=== PATIENT | female | born 1965 | race Caucasian/White ===

== ENCOUNTER 2024-09-22 01:07 | Day surgery (SDC) | payer OTHER, SELFPAY ==
[2024-09-02 12:30] VITALS: BMI 41.6
[2024-09-22 12:59] VITALS: BP 150/89; PULSE 88; RESP 16; TEMP 35.9; O2SAT 100
[2024-09-22] MEDS: LACTATED RINGERS 1,000 ML 150 ML IV CONT (13:40)
--- NOTE | 2024-09-22 13:42 | PM.HPGS ---
History of Present Illness History of Present Illness Consent: Risks, benefits, and alternatives have been discussed and questions answered. Patient agrees to proceed with procedure. Chief complaint: colon screening Narrative: Lisa Moreno is a 59 year old female here for screening colonoscopy, last one 10 years ago. Review of Systems Review of Systems: All systems reviewed & are unremarkable except as noted in HPI and below PMFSH Past Medical History Medical History (Updated 09/22/24 @ 13:42 by Jeramie Álvarez MD) Colon cancer screening Social History Social History Alcohol intake: current Alcohol use details: holidays Living arrangements: with family Spiritual care concerns: No Meds Home Medications and Allergies Home Medications ?Medication ?Instructions ?Recorded ?Confirmed ?Type L.acidophilus-B.animalis-B.longum 1 cap PO DAILY 09/02/24 09/22/24 History 15 billion cell capsule (Florajen Digestion) Vitamin D2 1.25 mg BYMOUTH WEEKLY 09/02/24 09/22/24 History amlodipine 5 mg tablet 5 mg PO DAILY 09/02/24 09/22/24 History irbesartan 300 mg tablet 300 mg PO DAILY 09/02/24 09/22/24 History mecobalamin (vitamin B12) See Rx Instructions PO DAILY 09/02/24 09/22/24 History Allergies Allergy/AdvReac Type Severity Reaction Status Date / Time adhesive Allergy Severe Blister Verified 09/22/24 12:56 adhesive tape Allergy Severe Blister Verified 09/22/24 12:56 benzoin Allergy Severe Blister Verified 09/22/24 12:56 azithromycin Allergy Mild Hives Verified 09/22/24 12:56 celecoxib Allergy Mild Hives Verified 09/22/24 12:56 erythromycin base Allergy Mild Hives Verified 09/22/24 12:56 silver Allergy Mild Rash Verified 09/22/24 12:56 oral prednisone Allergy Severe Hypertensio Uncoded 09/22/24 12:56 n Vital Signs Vital Signs - 24 hr 09/22/24 12:59 Temperature 96.7 F L Pulse Rate 88 Respiratory Rate 16 Blood Pressure 150/89 H Pulse Oximetry 100 Oxygen Delivery Room Air Exam Const: General: comfortable and no acute distress HENMT: Face/Nose/Sinus: Normal nares present Eyes: General: appearance normal, both eyes and all related structures Neck: Neck: no JVD Resp: Auscultation: clear to auscultation bilaterally Cardio: Rate: regular rate Rhythm: regular rhythm GI: Inspection: non-distended GI Palp: Yes Soft to palpation Skin: General skin exam: normal color Neuro: General: gait normal Speech: normal speech Extrem: General: normal to inspection Psych: Mental Status: mental status grossly normal Assessment and Plan Assessment and plan (1) Colon cancer screening: Code(s): Z12.11 - Encounter for screening for malignant neoplasm of colon Status: Acute Assessment and Plan: colonoscopy
[2024-09-22 14:10] VITALS: BP 145/101; PULSE 97; RESP 22; O2SAT 100
[2024-09-22 14:20] VITALS: BP 133/67; PULSE 81; RESP 17; O2SAT 97
[2024-09-22 14:30] VITALS: BP 131/70; PULSE 78; RESP 19; O2SAT 97
== END 2024-09-22 14:40 | disposition home or self-care (01) ==
PROVIDERS: PCP Internal Medicine; Visit Provider Internal Medicine Gastroenterology
PROC: 0DJD8ZZ Inspection of Lower Intestinal Tract, Via Natural or Artificial Opening Endoscopic (ICD-10-PCS; CPT 45378; principal; 2024-09-22 14:00)
DX: Z12.11 Encounter for screening for malignant neoplasm of colon (principal); K57.30 Diverticulosis of large intestine without perforation or abscess without bleeding
CPT/HCPCS: 45378; J2003; J2704; J7120

== ENCOUNTER 2024-12-11 08:14 | Outpatient (CLI) | payer OTHER, SELFPAY ==
--- NOTE | ~2024-12-11 | XR_ITS ---
EXAMINATION: XR UGIAC w small bowel DATE: 12/11/2024 09:45 INDICATION: Early satiety and bloating TECHNIQUE: The patient drank thick barium, gas-producing crystals, and thin barium. Conventional supi ne abdomen radiographs and fluoroscopic spot radiographs of the esophagus, stomach, and proximal smal l bowel were obtained. Additional overhead radiographs were obtained during the transit through the s mall bowel. Spot fluoroscopic images of the small bowel were obtained upon contrast reaching the cec um. A total of 969 fluoroscopic images and 6 overhead radiographs were obtained. Fluoroscopy exposure time was 3.8 minutes. Total DAP was 305.597 Gycm^2. COMPARISON: None. FINDINGS: The esophagus is normal without mass or stricture. Esophageal motility is normal. Postoperative smith e of prior adjustable lap banding procedure with reservoir projecting over the left pelvis and with n ormal phi angle of 40 degrees. The band is positioned below the diaphragm, very close to the gastroes ophageal junction. There is no hiatal hernia. The gastroesophageal junction at the level of the lap b and measures up to 8 x 9 mm on lateral and AP imaging respectively. There was no gastroesophageal ref lux with provocative maneuvers. The stomach and proximal small bowel are normal. Cholecystectomy clips in right upper quadrant. Transit time from the stomach to proximal colon was ap proximately 45 minutes. There is normal caliber and mucosal fold pattern throughout the small bowel. Terminal ileum is normal. No tethering or abnormal mass effect observed upon the small bowel with r eal-time fluoroscopy. IMPRESSION: 1. Adjustable lap band near the gastroesophageal junction with normal phi angle of 40 degrees. 2. Otherwise normal upper GI and small bowel follow-through study. Reviewed, dictated and finalized at location A.
--- OUTSIDE RECORDS SUMMARY | 2024-12-11 08:22 | XMS_ITS | Encounter Summary ---
Author Organization [facility] Address [address] [place] [address] Care Team Providers Care Flagger Name Role Phone Lucy Luna MD Primary Care Provider [phone] Encounter Details Date Type Department Care Team (Latest Contact Info) Description 11/07/2024 [employer] Message Enc [facility] Medical Group Multispecialty Care [facility] [address] [address] [address] [place] [address] Lucy Luna MD [address] [place] [address] [address] [place] [address] Root canal w/abcess Social History Tobacco Use Types Packs/Day Years Used Date Smoking Tobacco: Never Passive Smoke Exposure: Never Smokeless Tobacco: Never Comments:Counseled by Dr. Raquel león. Alcohol Use Standard Drinks/Week Comments Not Currently 0 (1 standard drink = 0.6 oz pur e alcohol) PHQ-2 Answer Date Recorded Patient Health Questionnaire-2 Score 0 11/07/2024 Comments No Sex and Gender Information Value Date Recorded Sex Assigned at Female 09/23/2024 8:49 AM WEIGHT ANALYST Legal Sex Female 11:30 PM WEIGHT ANALYST Gender Identity Female 11/14/2024 10:46 AM WEIGHT ANALYST Sexual Orientation Straight 11/14/2024 10 :46 AM WEIGHT ANALYST documented as of this encounter Plan of Treatment Upcoming Encounters Date Type Department Care Team (Late st Contact Info) Description 12/15/2024 9:30 AM CDT Office Visit [facility] Physical [facility] [address] [address] [place] [address] Piedad Mcfarland, GRACIA [address] [facility] [address] [place] [address] Analilia Fulton, PT 1 [facility] [place] [address] 12/19/2024 2:00 PM CDT Office Visit [facility] General Surgery [address], [address] [place] [id number] Bernard Solano MD [address] [place] [address] 12/29/2024 11:40 AM CDT [facility] - [facility] [address] [facility], [address] [place] [address] Osiel Telles MD 3 [facility] [address] [place] [address] 01/13/2025 12:40 PM CDT [facility] - [place] [address] [place] [address] [address] [place] [address] [place] [address] [place] [address] [address] [place] [address] documented as of this encounter Visit Diagnoses Not on filedocumented in this encounter Additional Health Concerns Infection Onset Date Last Indicated Resolved Time Respiratory Rule-Out 11/14/2024 11/14/2024 025 4:36 PM WEIGHT ANALYST Influenza - Seasonal 11/14/2024 11/14/2024 025 12:32 AM CDT Assessment Noted Time PHQ-9 Depression Total Score: 0 02/28/20 25 10:46 AM WEIGHT ANALYST documented as of this encounter Care Teams Flagger Relationship Specialty Start Date End Date Lucy Luna MD [facility] [address] [address] PCP - General 05/08/24 documented as of this encounter
--- OUTSIDE RECORDS SUMMARY | 2024-12-11 08:22 | XMS_ITS | Encounter Summary ---
Author Organization [facility] Address [address] [place] [address] Care Team Providers Care Gas Plumbing Inspector Name Role Phone Lucy Luna MD Primary Care Provider [phone] Encounter Details Date Type Department Care Team (Latest Contact Info) Description 10/31/2024 [employer] Message Enc [facility] Medical Group Multispecialty Care [facility] [address] [address] [address] [place] [address] Lucy Luna MD [address] [place] [address] [address] [place] [address] Compound tirzepitide Social History Tobacco Use Types Packs/Day Years Used Date Smoking Tobacco: Never Passive Smoke Exposure: Never Smokeless Tobacco: Never Comments:Counseled by Dr. Raquel león. Alcohol Use Standard Drinks/Week Comments Not Currently 0 (1 standard drink = 0.6 oz pur e alcohol) PHQ-2 Answer Date Recorded Patient Health Questionnaire-2 Score 0 05/09/2024 Comments No Sex and Gender Information Value Date Recorded Sex Assigned at Female 09/23/2024 8:49 AM COLD MOLDING PRESS OPERATOR Legal Sex Female 11:30 PM COLD MOLDING PRESS OPERATOR Gender Identity Female 11/14/2024 10:46 AM COLD MOLDING PRESS OPERATOR Sexual Orientation Straight 11/14/2024 10 :46 AM COLD MOLDING PRESS OPERATOR documented as of this encounter Plan of Treatment Upcoming Encounters Date Type Department Care Team (Late st Contact Info) Description 12/15/2024 9:30 AM CDT Office Visit [facility] Therapy [address] [facility] [address] [place] [address] Piedad Mcfarland, GRACIA [address] [facility] [address] [place] [address] Analilia Fulton, PT 1 [place] [address] 12/19/2024 2:00 PM CDT Office Visit [facility] General Surgery - [address], [address] [place] [address] Bernard Solano MD [address] [place] [address] 12/29/2024 11:40 AM CDT [facility] [address] [facility], [address] [place] [address] Osiel Telles MD 3 [facility] [address] [place] [address] 01/13/2025 12:40 PM CDT [facility] [address] [place] [address] [address] [place] [address] [place] [address] [place] [address] [address] [place] [address] documented as of this encounter Visit Diagnoses Not on filedocumented in this encounter Additional Health Concerns Infection Onset Date Last Indicated Resolved Time Respiratory Rule-Out 11/14/2024 11/14/2024 025 4:36 PM COLD MOLDING PRESS OPERATOR Influenza - Seasonal 11/14/2024 11/14/2024 025 12:32 AM CDT Assessment Noted Time PHQ-9 Depression Total Score: 5 08/30/20 24 12:10 PM CDT documented as of this encounter Care Teams Gas Plumbing Inspector Relationship Specialty Start Date End Date Lucy Luna MD [address] [address] PCP - General 05/08/24 documented as of this encounter
--- OUTSIDE RECORDS SUMMARY | 2024-12-11 08:22 | XMS_ITS | Clinical Summary ---
Author Organization [facility] Address [address] [place] [address] Care Team Providers Care Anchorer Name Role Phone Lucy Luna MD Primary Care Provider [phone] Allergies Active Allergy Reactions Criticality Noted Date Comments Adhesive Itching Low 08/04/2017 Azithromycin Hives Medium 09/11/2019 Benzoin Rash Medium 05/21/2018 Benzoin Compound Rash Medium 05/21/2018 Celecoxib Hives Medium 11/19/2008 HIVES Ciprofloxacin Dizziness,Other (See comments) Low 05/21/2018 Diltiazem Headache Low 05/27/2024 Erythromycin Hives Medium 12/27/2020 Levofloxacin Other (See comments),Joint pain Low 05/08/2019 Joint pain Orphenadrine Hives Medium 09/11/2019 Prednisone Other (See comments) Low 05/21/2018 Hypertension Blood pressure elevation Silver Rash Medium 04/15/2012 Sulfa Hives Medium 12/27/2020 Sulfamethoxazole-Trimeth oprim Hives Medium 05/21/2018 Vancomycin Hcl Stomach upset,Other (See comments) Low 05/21/2018 Rectal bleeding Medications irbesartan (AVAPRO) 300 mg tablet 11/17/19 25 Active amLODIPine (NORVASC) 10 mg tablet 11/17/19 25 Active tirzepatide, weight loss, (Zepbound) 2.5 mg/0.5 mL pen injector Indications: Weight Loss Inject 2.5mg subcutaneous once weekly x 4 weeks then increase to 5mg weekly 11/05/19 25 Active omeprazole (PriLOSEC) 40 mg capsule Take 1 capsule (40 mg total) by mouth daily 11/15/19 25 Active L. acidophilus/Bi fid. animalis 33 billion cell capsule Take 1 capsule by mouth daily Active HYDROcodone-ac etaminophen (NORCO) 5-325 mg per tablet Take 1 tablet by mouth 11/07/19 25 Active escitalopram (LEXAPRO) 10 mg tablet Take 1 tablet (10 mg total) by mouth 04/01/20 24 025 Active ergocalciferol (VITAMIN D) 50,000 unit capsule Take 1 capsule (50,000 Units total) by mouth every 7 days Active dicyclomine (BENTYL) 20 mg tablet Take 1 tablet (20 mg total) by mouth every 6 (six) hours 08/20/20 Active diazePAM (VALIUM) 2 mg tablet Take 0.5 tablets (1 mg total) by mouth every 6 (six) hours as needed for anxiety 10 tablet 12/01/19 24 025 Discontinued amLODIPine (NORVASC) 5 mg tablet Take 1 tablet (5 mg total) by mouth 2 (two) times a day 06/24/20 025 Discontinued carvediloL (COREG) 6.25 mg tablet Take 1 tablet (6.25 mg total) by mouth 12/12/19 025 Discontinued irbesartan (AVAPRO) 75 mg tablet Take 1 tablet (75 mg total) by mouth daily 025 Discontinued ciprofloxacin- dexAMETHasone (CIPRODEX) otic suspension Administer 4 drops into the left ear 2 (two) times a day 7.5 mL 03/13/20 025 Discontinued benzonatate (TESSALON) 200 mg capsuleIndicat ions:Acute maxillary sinusitis, recurrence not specified Take 1 capsule (200 mg total) by mouth 3 (three) times a day as needed for cough 42 capsule 06/30/20 025 Discontinued amoxicillin-cl avulanate (AUGMENTIN) 875-125 mg per tabletIndicati ons:Bronchitis Take 1 tablet by mouth 2 (two) times a day for 7 days 14 tablet 11/26/19 25 025 Active Problems No known active problems Encounters Date Type Department Care Team Description 11/28/2024 7:56 AM CDT - 11/28/2024 11:59 PM CDT Hospital Encounter [facility] [address] [place] [address] Other abnormal and inconclusive findings on diagnostic imaging of breast Discharge Disposition: Discharge to home or self care 11/28/2024 7:55 AM CDT - 11/28/2024 11:59 PM CDT Hospital Encounter [facility] [address] [place] [address] Other abnormal and inconclusive findings on diagnostic imaging of breast Discharge Disposition: Discharge to home or self care 11/26/2024 Results Follow-Up [facility] [place] [address] [place] [address] Dahlia Dumas NP 11/25/2024 11:52 AM CDT - 11/25/2024 11:59 PM CDT Hospital Encounter [facility] [address] [place] [address] Sore throat Discharge Disposition: Discharge to home or self care 11/25/2024 11:30 AM CDT Office Visit [facility] Medical [facility] [place] [address] [place] [address] Brooke Banerjee NP Sore throat (Primary Dx); Bronchitis 11/20/2024 12:22 PM CDT - 11/20/2024 11:59 PM CDT Hospital Encounter [address] [address] Encounter for screening for osteoporosis Discharge Disposition: Discharge to home or self care 11/20/2024 12:22 PM CDT - 11/20/2024 11:59 PM CDT Hospital Encounter [address] [address] Encounter for screening mammogram for malignant neoplasm of breast Discharge Disposition: Discharge to home or self care 11/12/2024 Telephone [facility] [address] [facility] [address] [place] [phone] Dahlia Thomas RN from Last 3 Months Surgical History Surgery Date Site/Laterality Comments HYSTERECTOMY 09/10/2005 - 09/09/2006 OOPHORECTOMY 09/10/2009 - 09/09/2010 Family History Medical History Relation Name Comments Ovarian cancer Father's Sister Breast cancer Mother Ovarian cancer Paternal Grandmother Thyroid cancer Neg Hx Relation Name Status Comments Father's Sister Mother Paternal Grandmother Social History Tobacco Use Types Packs/Day Years Used Date Smoking Tobacco: Never Smokeless Tobacco: Never Tobacco Cessation:Counseling Given: Not Answered Alcohol Use Standard Drinks/Week Comments Yes 0 (1 standard drink = 0.6 oz pur e alcohol) occasionally Personal Safety Answer Date Recorded Have you ever been in or are you currently in a harmful physical or emotional relationship or is someone making you feel afraid or unsafe? Denies 03/13/2024 Comments No Sex and Gender Information Value Date Recorded Sex Assigned at Not on file Legal Sex Female 11:46 AM CDT Gender Identity Female 11/26/2024 4:48 PM CDT Sexual Orientation Asexual 11/26/2024 4: 48 PM CDT Obstetrics History Para Term AB IAB SAB Ectopic Multiple Livin g Live Births 7 4 4 Date Outcome GA Total Labor Labor/2nd/3rd Weight Sex Type Anes PTL Marisol A1 A5 Name Clin Term Term Term Term Last Filed Vital Signs Vital Sign Reading Time Taken Comments Blood Pressure 132/84 11/25/2024 11:21 AM CDT Pulse 86 11/25/2024 11:21 AM CDT Temperature 36.6 C (97.8 F) 11/25/2024 11:21 AM CDT Respiratory Rate 18 11/25/2024 11:21 AM CDT Oxygen Saturation 98% 11/25/2024 11:21 AM CDT Inhaled Oxygen Concentration - - Weight 122.5 kg (270 lb) 11/25/2024 11:21 AM CDT Height 165.1 cm (5' 5 ) 11/25/2024 11:21 AM CDT Body Mass Index 44.93 11/25/2024 11:21 AM CDT Plan of Treatment Health Maintenance Due Date Last Done Comments Colon Cancer Screening-Colonoscopy 1966 Depression Screening 1966 Hepatitis C Screening 1966 Hepatitis B Screening 01/25/1984 Regular Well Visit/Exam 18-64 01/25/1984 Zoster Vaccine (1 of 2) 01/25/2016 Covid-19 Vaccine ( season) 2024 07/06/2021, 11/08/2020, 10/18/2020 Influenza Vaccine (Season Ended) 2025 06/28/2022, 06/21/2021, 06/06/2020, Additional history exists Breast Cancer Screening-Mammogram 11/20/2025 11/20/2024, 09/17/2023, 09/17/2023, Additional history exists DTaP/Tdap/Td Vaccine (3 - Td or Tdap) 12/17/2030 12/17/2020, 11/03/2010 Pneumococcal vaccine <65 Aged Out No longer eligible based on patient's age to complete this topic Procedures Procedure Name Priority Date/Time Associated Diagnosis Comments US BREAST LEFT LIMITED Schedule Routine, Read Routine (OP Routine) 11/28/2024 8:42 AM CDT Other abnormal and inconclusive findings on diagnostic imaging of breast DIAGNOSTIC MAMMOGRAM 2D LEFT Schedule Routine, Read Routine (OP Routine) 11/28/2024 8:10 AM CDT Other abnormal and inconclusive findings on diagnostic imaging of breast THROAT CULTURE Routine 11/25/2024 11:52 AM CDT Sore throat POCT RAPID STREP Routine 11/25/2024 11:4 1 AM CDT Sore throat DEXA AXIAL SKELETON BONE DENSITY 1 OR MORE SITES Schedule Routine, Read Routine (OP Routine) 11/20/2024 1:17 PM CDT Encounter for screening for osteoporosis SCREENING MAMMOGRAM BILATERAL W BUBBA Schedule Routine, Read Routine (OP Routine) 11/20/2024 12:36 PM CDT Encounter for screening mammogram for malignant neoplasm of breast from Last 3 Months Results * US Breast Left Limited (11/28/2024 8:42 AM CDT) Anatomical Region Laterality Modality Breast Left Ultrasound 11/28/2024 9:11 AM CDT Impressions 11/28/2024 9:11 AM CDT Grouped microcalcifications in the left breast are probably benign. OVERALL FINAL ASSESSMENT: BI-RADS Category 3: Probably Benign. RECOMMENDATION: The patient should return in 6 months time for follow-up diagnostic imaging to document stability. Electronically signed by: Clementina Hsieh M.D. Narrative 11/28/2024 9:11 AM CDT EXAMINATION: LEFT UNILATERAL DIGITAL DIAGNOSTIC MAMMOGRAM AND DIGITAL BREAST TOMOSYNTHESIS; LEFT BREAST SONOGRAM HISTORY: Abnormal screening study COMPARISON: 11/20/2024, 09/17/2023, 07/28/2022, 05/02/2021 TECHNIQUE: Full field digital mammographic views of left breast were performed, including computer aided detection (CAD) and digital breast tomosynthesis (DBT). Directed ultrasound evaluation of left breast was performed. BREAST PARENCHYMAL COMPOSITION: The breasts are almost entirely fatty. MAMMOGRAM FINDINGS: Magnification CC, magnification 90 degree and full field 90 degrees images of the left breast were performed. The microcalcifications identified within the medial posterior tissues of the left breast, 15 cm from the nipple demonstrate overall coarse morphology. Some calcifications may represent developing vascular calcifications. Magnification 90 degree view raises the question of an underlying lesion such as a fibroadenoma. Ultrasound evaluation was performed. SONOGRAM FINDINGS: Targeted left breast ultrasound was performed in the region of interest. No definite sonographic correlate for the mammographic findings is appreciated. us Lucy Luna MD IMG MAMMO PROCEDURES Final Resul t * Diagnostic Mammogram 2D Left (11/28/2024 8:10 AM CDT) Anatomical Region Laterality Modality Breast Left Mammography 11/28/2024 9:11 AM CDT Impressions 11/28/2024 9:11 AM CDT Grouped microcalcifications in the left breast are probably benign. OVERALL FINAL ASSESSMENT: BI-RADS Category 3: Probably Benign. RECOMMENDATION: The patient should return in 6 months time for follow-up diagnostic imaging to document stability. Electronically signed by: Clementina Hsieh M.D. Narrative 11/28/2024 9:11 AM CDT EXAMINATION: LEFT UNILATERAL DIGITAL DIAGNOSTIC MAMMOGRAM AND DIGITAL BREAST TOMOSYNTHESIS; LEFT BREAST SONOGRAM HISTORY: Abnormal screening study COMPARISON: 11/20/2024, 09/17/2023, 07/28/2022, 05/02/2021 TECHNIQUE: Full field digital mammographic views of left breast were performed, including computer aided detection (CAD) and digital breast tomosynthesis (DBT). Directed ultrasound evaluation of left breast was performed. BREAST PARENCHYMAL COMPOSITION: The breasts are almost entirely fatty. MAMMOGRAM FINDINGS: Magnification CC, magnification 90 degree and full field 90 degrees images of the left breast were performed. The microcalcifications identified within the medial posterior tissues of the left breast, 15 cm from the nipple demonstrate overall coarse morphology. Some calcifications may represent developing vascular calcifications. Magnification 90 degree view raises the question of an underlying lesion such as a fibroadenoma. Ultrasound evaluation was performed. SONOGRAM FINDINGS: Targeted left breast ultrasound was performed in the region of interest. No definite sonographic correlate for the mammographic findings is appreciated. us Lucy Luna MD IMG MAMMO PROCEDURES Final Resul t * Throat culture Throat (11/25/2024 11:52 AM CDT) Report Final Report: No growth of pathogens. Comment:Testing performed by : [facility], [address] [place] [address] Throat 11/25/2024 11:5 2 AM CDT 11/25/2024 9:50 PM CDT Narrative BRITTANIE ROA - 11/26/2024 6:00 PM CDT Testing performed by [facility] Microbiology Laboratory ([phone]). us Brooke Banerjee NP LAB MICROBIOLOGY - GENERAL ORDER JELANI Final Result [facility] [address] Department [place] [address] * POCT rapid strep A (11/25/2024 11:41 AM CDT) Rapid Strep A, POC Negative Negative Swab 11/25/2024 11:4 1 AM CDT us Brooke Banerjee DIESEL ENGINE TESTER POINT OF CARE TEST ORDERABLES Fi nal Result * Dexa Axial Skeleton Bone Density 1 or 2 Site (11/20/2024 1:17 PM CDT) Anatomical Region Laterality Modality Body N/A Other 11/22/2024 7:01 AM CDT Narrative 11/22/2024 7:01 AM CDT EXAM DESCRIPTION: DEXA AXIAL SKELETON BONE DENSITY 1 OR MORE SITES REASON FOR STUDY: 59 y/o year old F with given history of: Postmenopausal status. History of taking vitamin-D and calcium Button Sewer Hand/Model: [employer] SL ([id number]/N [id number]) Facility LSC value of 0.022 for the AP spine, 0.027 for the femur, and 0.023 for the forearm. CLINICAL INFORMATION: Current height: 65 inches Maximum height: 65 inches Weight: 250 pounds Risk factors: None COMPARISON: None available FINDINGS: AP LUMBAR SPINE L1-L4: Total BMD is 1.039 g/cm2 T-score is -0.1 LEFT HIP: Total BMD is 0.809 g/cm2 T-score is -1.1 Femoral neck BMD is 0.587 g/cm2 T-score is -2.4 FRAX: 10 year risk for a major osteoporotic fracture is 8.9 %, 10 year risk for a hip fracture is 1.3 % IMPRESSION: Low bone mass REFERENCE: Bone mineral density: T-Score: Normal (T-score above or = -1.0) Low bone mass (T-score between -1.0 and -2.5) replaces the previously used term osteopenia Osteoporosis (T-score = or below -2.5) Z-Score: Within the expected range for age (Z-score above -2.0) Below the expected range for age (Z-score is -2.0 or below) Please see below follow up recommendations. Medical evaluation for secondary causes of low bone mineral density may be appropriate. FRAX is a World Health Organization validated fracture risk assessment tool that calculates a person's 10 year probability of a major osteoporosis related fracture and hip fracture. According to the National Osteoporosis Foundation guidelines, postmenopausal women and men age 50 or older with low bone mass and a 10 year probability of a major osteoporosis related fracture = or greater than 20% or a 10 year probability of a hip fracture = or greater than 3% should be considered for pharmacological treatment for the prevention of osteoporosis. For further information, including treatment recommendations, please refer to the 2019 ISCD Official Positions (http://www.iscd.org) and the NOF's Clinician's Guide to Prevention and Treatment of Osteoporosis (http://www.nof.org/professionals/clinical-guidelines) THIS IS AN ELECTRONICALLY VERIFIED FINAL REPORT 11/22/2024 7:01 AM - Electronically signed by Juana Garcia M.D. TW: TW Report ID: [id number] Reading Location: [id number] Procedure Note Juana Garcia MD - 11/22/2024 EXAM DESCRIPTION: DEXA AXIAL SKELETON BONE DENSITY 1 OR MORE SITES REASON FOR STUDY: 59 y/o year old F with given history of:Postmenopausal status. 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 CLINICAL INFORMATION: Current height: 65 inches Maximum height: 65 inches Weight: 250 pounds Risk factors: None COMPARISON: None available FINDINGS: AP LUMBAR SPINE L1-L4: Total BMD is 1.039 g/cm2 T-score is -0.1 LEFT HIP: Total BMD is 0.809 g/cm2 T-score is -1.1 Femoral neck BMD is 0.587 g/cm2 T-score is -2.4 FRAX: 10 year risk for a major osteoporotic fracture is 8.9 %, 10 year risk fora hip fracture is 1.3 % IMPRESSION: Low bone mass REFERENCE: Bone mineral density: T-Score: Normal (T-score above or = -1.0) Low bone mass (T-score between -1.0 and -2.5) replaces thepreviously used term osteopenia Osteoporosis (T-score = or below -2.5) Z-Score: Within the expected range for age (Z-score above -2.0) Below the expected range for age (Z-score is -2.0 or below) Please see below follow up recommendations. Medical evaluation forsecondary causes of low bone mineral density may be appropriate. FRAX is a World Health Organization validated fracture risk assessmenttool that calculates a person's 10 year probability of a major osteoporosisrelated fracture and hip fracture. According to the National OsteoporosisFoundation guidelines, postmenopausal women and men age 50 or older with low bonemass and a 10 year probability of a major osteoporosis related fracture = or greater than 20% or a 10 year probability of a hip fracture = or greaterthan 3% should be considered for pharmacological treatment for the preventionof osteoporosis. For further information, including treatment recommendations, please referto the 2019 ISCD Official Positions (http://www.iscd.org) and the NOF's Clinician's Guide to Prevention and Treatment of Osteoporosis (http://www.nof.org/professionals/clinical-guidelines) THIS IS AN ELECTRONICALLY VERIFIED FINAL REPORT 11/22/2024 7:01 AM - Electronically signed by Juana Garcia M.D. TW: TW Report ID: [id number] Reading Location: [place] [address] Piedad Mcfarland NP IMG DXA PROCEDURES Final R esult * (ABNORMAL) Screening Mammogram Bilateral W Bubba (11/20/2024 12:36 PM CDT) Anatomical Region Laterality Modality Breast Bilateral Mammography Impressions 11/20/2024 1:29 PM CDT BI-RADS ATLAS category (overall): 0 - Incomplete: Needs Additional Imaging Evaluation 1. Indeterminate left breast calcifications as above. Further evaluation with diagnostic left mammography is recommended. 2. No mammographic evidence of malignancy in the right breast. Routine screening mammography of the right breast is recommended in 1 year. The patient has been or will be contacted. Narrative 11/20/2024 1:29 PM CDT Screening Mammogram Bilateral W Bubba: 11/20/24 The study was acquired using full field digital technology and interpreted from soft copy. 2D digital mammographic views, as well as 3D digital tomosynthesis were performed in the CC and MLO projections. This study was resulted using Computer-Aided Detection (CAD). CLINICAL: Encounter for screening mammogram for malignant neoplasm of breast. No relevant medical history has been documented for this patient. History of breast cancer in Mother. COMPARISONS: 09/17/2023 Breast Imaging Screening Outside Reference 07/28/2022 Breast Imaging Screening Outside Reference 05/02/2021 Breast Imaging Screening Outside Reference BREAST TISSUE: The breasts are almost entirely fatty. FINDINGS: There are indeterminate grouped calcifications in the posterior inner left breast, located below the posterior nipple line on the MLO view. There is a stable benign intramammary lymph node in the posterior upper outer right breast. There is no new suspicious finding in th right breast on mammogram. Piedad Mcfarland NP IMG MAMMO PROCEDURES Final Result from Last 3 Months Insurance [facility] [employer] Care Teams Anchorer Relationship Specialty Start Date End Date Lucy Luna MD [address] [place] [address] PCP - General Internal Medicine 09/30/24
--- OUTSIDE RECORDS SUMMARY | 2024-12-11 08:22 | XMS_ITS | Encounter Summary ---
Author Organization [facility] Address [address] [place] [address] Care Team Providers Care Cashier Manager Name Role Phone Lucy Luna MD Primary Care Provider Encounter Details Date Type Department Care Team (Late Contact Info) Description 12/03/2024 MyChart Message Enc [facility] [place] [address] [place] [address] Piedad Mcfarland, THREADING MACHINE OPERATOR [address] [place] [address] DEXA Social History Tobacco Use Types Packs/Day Years Used Date Smoking Tobacco: Never Passive Smoke Exposure: Never Smokeless Tobacco: Never Comments:Counseled by Dr. Raquel lenó. Alcohol Use Standard Drinks/Week Comments Not Currently 0 (1 standard drink = 0.6 oz pur e alcohol) PHQ-2 Answer Date Recorded Patient Health Questionnaire-2 Score 0 11/07/2024 Comments No Sex and Gender Information Value Date Recorded Sex Assigned at Female 09/23/2024 8:49 AM SENIOR ADMINISTRATIVE SUPPORT Legal Sex Female 11:30 PM SENIOR ADMINISTRATIVE SUPPORT Gender Identity Female 11/14/2024 10:46 AM SENIOR ADMINISTRATIVE SUPPORT Sexual Orientation Straight 11/14/2024 10 :46 AM SENIOR ADMINISTRATIVE SUPPORT documented as of this encounter Plan of Treatment Upcoming Encounters Date Type Department Care Team (Late Contact Info) Description 12/15/2024 9:30 AM CDT Office Visit [facility] [address] [place] [address] Piedad Mcfarland, THREADING MACHINE OPERATOR [address] [facility] [address] [place] [address] Analilia Fulton, PT [address] [facility] [place] [address] 12/19/2024 2:00 PM CDT Office Visit [facility] General Surgery - [address], [address] [place] [phone] Bernard Solano MD [address] [address] 12/29/2024 11:40 AM CDT [facility] [place] [facility] [address], [address] [place] [address] Osiel Telles MD [address] [facility] [address] [place] [address] 01/13/2025 12:40 PM CDT [facility] [place] [facility] [place] [address] [place] [address] Lucy Luna MD [address] [address] documented as of this encounter Visit Diagnoses Not on filedocumented in this encounter Additional Health Concerns Assessment Noted Time PHQ-9 Depression Total Score: 0 11/07/19 25 10:46 AM SENIOR ADMINISTRATIVE SUPPORT documented as of this encounter Care Teams Cashier Manager Relationship Specialty Start Date End Date Lucy Luna MD [address] [place] [address] [address] [place] [address] PCP - General 05/08/24 documented as of this encounter
--- OUTSIDE RECORDS SUMMARY | 2024-12-11 08:22 | XMS_ITS | Encounter Summary ---
Author Organization [facility] Address [address] [place] [address] Care Team Providers Care Time Broker Name Role Phone Lucy Luna MD Primary Care Provider [phone] Encounter Details Date Type Department Care Team (Latest Contact Info) Description 05/27/[address] [facility] Multispecialty Care [facility] [address] [address] [address] [place] [address] Lucy Luna MD [address] [place] [address] 157 [place] [address] Hypertension medications Social History Tobacco Use Types Packs/Day Years Used Date Smoking Tobacco: Never Passive Smoke Exposure: Never Smokeless Tobacco: Never Comments:Counseled by Dr. Raquel león. Alcohol Use Standard Drinks/Week Comments Not Currently 0 (1 standard drink = 0.6 oz pur e alcohol) PHQ-2 Answer Date Recorded Patient Health Questionnaire-2 Score 0 05/09/2024 Comments Unknown Sex and Gender Information Value Date Recorded Sex Assigned at Female 09/23/2024 8:49 AM WORKING FOREMAN Legal Sex Female 11:30 PM WORKING FOREMAN Gender Identity Female 11/14/2024 10:46 AM WORKING FOREMAN Sexual Orientation Straight 11/14/2024 10 :46 AM WORKING FOREMAN documented as of this encounter Plan of Treatment Upcoming Encounters Date Type Department Care Team (Late st Contact Info) Description 12/15/2024 9:30 AM CDT Office Visit [facility] Physical Therapy 1188 [facility] 157 [place], [place] [id number] Piedad Mcfarland, GRACIA [address] [facility] [address] [place] [address] Analilia Fulton, PT 1 [facility] [place] [address] 12/19/2024 2:00 PM CDT Office Visit [facility] General Surgery [address], [address] [place] [address] Bernard Solano MD [address] [place] [address] 12/29/2024 11:40 AM CDT [facility] 3 [facility], [address] [place] [address] Osiel Telles MD 3 [facility] 5000 [place] [address] 01/13/2025 12:40 PM CDT [facility] [address] [place] [address] [address] [place] [address] [place] [address] [place] [address] [address] [place] [address] documented as of this encounter Visit Diagnoses Not on filedocumented in this encounter Additional Health Concerns Infection Onset Date Last Indicated Resolved Time Respiratory Rule-Out 11/14/2024 11/14/2024 025 4:36 PM WORKING FOREMAN Influenza - Seasonal 11/14/2024 11/14/2024 025 12:32 AM CDT Assessment Noted Time PHQ-9 Depression Total Score: 5 05/09/20 24 12:10 PM CDT documented as of this encounter Care Teams Time Broker Relationship Specialty Start Date End Date Lucy Luna MD [address] [address] PCP - General 05/08/24 documented as of this encounter
--- OUTSIDE RECORDS SUMMARY | 2024-12-11 08:22 | XMS_ITS | Clinical Summary ---
Author Organization [facility] Address [address] [place] [address] Care Team Providers Care Meter And Regulator Shop Supervisor Name Role Phone Dominique Avila MD Primary Care Provider Allergies Active Allergy Reactions Criticality Noted Date Comments Adhesive Tape Itching 08/04/2017 Sulfamethoxazole-Trimeth oprim Hives 05/21/2018 Benzoin Rash Low 05/21/2018 Celecoxib Hives 11/19/2008 HIVES Ciprofloxacin Other (see Comments) 05/21/2018 Levofloxacin Other (see Comments) 09/11/2019 Joint pain Other-Environmental Allergen (Not Found In Search) Unknown 11/19/2008 Bion?? Solution that goes over steri strips. Prednisone Other (see Comments) 05/21/2018 Blood pressure elevation Silver Rash Low 04/15/2012 Vancomycin Hcl Other (see Comments) 05/21/2018 Rectal bleeding Azithromycin Hives 09/11/2019 Medications AMLODIPINE BESYLATE PO Take by mouth. Act sobeida esomeprazole (NEXIUM) 20 MG CAPSULE DELAYED RELEASE Take 20 mg by mouth daily. Active amLODIPine (NORVASC) 5 MG Tablet 9 Active albuterol (PROAIR HFA) 108 (90 Base) MCG/ACT Aerosol SolutionIndicat ions:Shortness of breath take 2 Puffs by inhalation every 4 hours as needed for Wheezing or Cough. 1 Inhaler 0 Active Additional Information Patient not taking.Reported on 10/30/2020 FLUoxetine (PROzac) 20 MG Capsule 1 Active irbesartan (AVAPRO) 75 MG Tablet 1 Active fluconazole (Diflucan) 150 MG Tablet Take 1 tablet by mouth for 1 dose. Repeat if needed. 2 Tablet 1 Active Additional Information Patient not taking.Reported on 06/04/2021 calcium carbonate-vitam in D 600-400 MG-UNIT Tablet Take 1 Tablet by mouth. Active Multiple Vitamins-Minera ls (MULTIVITAMIN WOMEN PO) Take by mouth. Activ e ibuprofen (MOTRIN) 400 MG Tablet Take 400 mg by mouth. Active saccharomyces boulardii (FLORASTOR) 250 MG Capsule Take 250 mg by mouth. 0 Active Semaglutide (Rybelsus) 3 MG Tablet Take 3 mg by mouth daily. Active gabapentin (NEURONTIN) 100 MG Capsule Take 100 mg by mouth 3 times daily. 1 capsule in AM, 1 capsule midday and 2 capsules PM Active candesartan (ATACAND) 8 MG Tablet Take 8 mg by mouth daily. Active orphenadrine (NORFLEX) 100 MG TABLET SR 12 HR Take 1 Tablet by mouth 2 times daily as needed for Muscle spasms or Pain. 20 Tablet 3 Active Active Problems No known active problems Immunizations Immunization Administration Dates Next Due Influenza Vaccine, Quadrivalent, PF 06/10,06/06/2020,06/26/2019,2018,07/03/2017,09/21/2016,08/16/2015,1 ,07/09/2013,08/14/2012, 007 Influenza, Seasonal, Injecta ble, Undefined 06/21/2021 TDAP Vaccine 12/17/2020,11/03/2010 Social History Tobacco Use Types Packs/Day Years Used Date Smoking Tobacco: Never Smokeless Tobacco: Never Tobacco Cessation:Counseling Given: Yes Alcohol Use Standard Drinks/Week Comments Yes 0 (1 standard drink = 0.6 oz pur e alcohol) very occasional Sexually Active Control Partners Comments Yes Male Comments No Sex and Gender Information Value Date Recorded Sex Assigned at Not on file Legal Sex 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 Gender Identity Not on file Sexual Orientation Not on file Last Filed Vital Signs Vital Sign Reading Time Taken Comments Blood Pressure 148/90 06/03/2023 8:47 AM CDT Pulse 85 06/03/2023 8:47 AM CDT Temperature 36.3 C (97.3 F) 06/03/2023 8:47 AM CDT Respiratory Rate 15 06/03/2023 8:47 AM CDT Oxygen Saturation 96% 06/03/2023 8:47 AM CDT Inhaled Oxygen Concentration - - Weight 108.4 kg (239 lb) 03/06/2023 6:45 PM CDT Height 165.1 cm (5' 5 ) 03/06/2023 6:45 PM CDT Body Mass Index 39.77 03/06/2023 6:45 PM CDT Plan of Treatment Health Maintenance Due Date Last Done Comments Hepatitis C Virus (HCV) Screening 1966 Hepatitis B Immunization (1 of 3 - 19+ 3-dose series) 1985 Cologuard 01/25/2016 Immunochemical Fecal Occult Blood 01/25/2016 Pneumococcal Immunization (50+ years) (1 of 1 - PCV) 01/25/2016 Zoster Immunization (1 of 2) 01/25/2016 Mammogram 07/28/2023 07/28/2022, 04/11, 04/27/2020, Additional history exists Influenza Immunization (#1) 05/11/202406/10, 06/21/2021, 06/06/2020, Additional history exists SARS-COV-2 Immunization ( season) 2024 07/06/2021, 11/08/2020, 10/18/2020 Colonoscopy 09/26/2027 09/26/2017 Colorectal Cancer Screening 09/26/2027 Td Immunization Every 10 Years (Adults With 1 Tdap) 12/17/2030 12/17/2020, 11/03/2010 Respiratory Syncytial Virus (RSV) Immunization (Adult) (1 - 1-dose 75+ series) 2041 09/26/2017 DTaP/Tdap/Td Immunization Discontinued 12/17/2020, Meningococcal Immunization (ACWY) Aged Out No longer eligible based on patient's age to complete this topic Rotavirus Immunization Aged Out No lo nger eligible based on patient's age to complete this topic Insurance [facility] Care Teams Meter And Regulator Shop Supervisor Relationship Specialty Start Date End Date Dominique Avila MD [address] [place] [address] PCP - General Internal Medicine 09/11/19
--- OUTSIDE RECORDS SUMMARY | 2024-12-11 08:22 | XMS_ITS | Encounter Summary ---
Author Organization [facility] Address [address] [place] [address] Care Team Providers Care Juvenile Counselor Name Role Phone Lucy Luna MD Primary Care Provider [phone] Encounter Details Date Type Department Care Team (Latest Contact Info) Description 07/04/2024 Booking Angelt Message Enc [facility] Multispecialty Care [facility] [address] [address] [address] [place] [address] Lucy Luna MD [address] [place] [address] 157 [place] [address] Surgical reaction Social History Tobacco Use Types Packs/Day Years [...] Sex Assigned at Female 09/23/2024 8:49 AM MARKETING PROJECT LEAD Legal Sex Female 11:30 PM MARKETING PROJECT LEAD Gender Identity Female 11/14/2024 10:46 AM MARKETING PROJECT LEAD Sexual Orientation Straight 11/14/2024 10 :46 AM MARKETING PROJECT LEAD documented as of this encounter Plan of Treatment Upcoming Encounters Date Type Department Care Team (Late st Contact Info) Description 12/15/2024 9:30 AM CDT Office Visit [facility] Physical Therapy 1188 [facility] 157 [place], [place] [phone] Piedad Mcfarland, GRACIA [address] [facility] [address] [place] [address] Analilia Fulton, PT 1 [facility] [place] [place] [address] 12/19/2024 2:00 PM CDT Office Visit [facility] General Surgery [address], [address] [place] [address] Bernard Solano MD [address] [place] [address] 12/29/2024 11:40 AM CDT [facility] 3 [facility], [address] [place] [address] Osiel Telles MD 3 [facility] 5000 [place] [address] 01/13/2025 12:40 PM CDT [facility] - [place] [address] [place] [address] [address] [place] [address] [place] [address] [place] [address] [address] [place] [address] documented as of this encounter Visit Diagnoses Not on filedocumented in this encounter Additional Health Concerns Infection Onset Date Last Indicated Resolved Time Respiratory Rule-Out 11/14/2024 11/14/2024 025 4:36 PM MARKETING PROJECT LEAD Influenza - Seasonal 11/14/2024 11/14/2024 025 12:32 AM CDT Assessment Noted Time PHQ-9 Depression Total Score: 5 05/09/20 24 12:10 PM CDT documented as of this encounter Care Teams Juvenile Counselor Relationship Specialty Start Date End Date Lucy Luna MD [address] [address] PCP - General 05/08/24 documented as of this encounter
--- OUTSIDE RECORDS SUMMARY | 2024-12-11 08:22 | XMS_ITS | Encounter Summary ---
Author Organization [facility] Address [address] [place] [address] Care Team Providers Care Copy Center Associate Name Role Phone Lucy Luna MD Primary Care Provider [phone] Reason for Referral * Imaging (Urgent) - Authorized Specialty Diagnoses / Procedures Referred By Contac t Referred To Contact RADIOLOGY Diagnoses Abnormal mammogram of left breast Procedures US BREAST LT BIRAD LTD Piedad Mcfarland NP [address] [place] [address] Phone: tel: fax: [facility] [address] [place] [address] Phone: tel: fax: Referral ID Status Reason Start Date Expiration Date V isits Requested Visits Authorized [id number] Authorized 11/24/2024 11/24/2025 1 1 * Imaging (Urgent) - Authorized Specialty Diagnoses / Procedures Referred By Contac t Referred To Contact Diagnoses Abnormal mammogram of left breast Procedures MG DIAGNOSTIC LT DIGI Piedad Mcfarland NP [address] [place] [address] Phone: tel: fax: [facility] [address] [place] [address] Phone: tel: fax: Referral ID Status Reason Start Date Expiration Date V isits Requested Visits Authorized [id number] Authorized 11/24/2024 1 1 Reason for Visit * Reason Onset Date Comments Schedule Test 11/24/2024 Encounter Details Date Type Department Care Team (Late st Contact Info) Description 11/24/2024 Misc Documentation [facility] Multispecialty Care - [place] [address] [place] [address] Piedad Mcfarland NP [address] [place] [address] Schedule Test Social History Tobacco Use Types Packs/Day Years [...] Sex Assigned at Female 09/23/2024 8:49 AM ADULT NEUROPSYCHOLOGIST Legal Sex Female 11:30 PM ADULT NEUROPSYCHOLOGIST Gender Identity Female 11/14/2024 10:46 AM ADULT NEUROPSYCHOLOGIST Sexual Orientation Straight 11/14/2024 10 :46 AM ADULT NEUROPSYCHOLOGIST documented as of this encounter Progress Notes * Piedad Mcfarland NP - 11/24/2024 10:25 PM CDT order documented in this encounter Plan of Treatment Upcoming Encounters Date Type Department Care Team (Late Contact Info) Description 12/15/2024 9:30 AM CDT Office Visit [facility] Physical Therapy [address] [place] [address] Piedad Mcfarland NP [address] [place] [address] Analilia Fulton, PT 1 [place] [address] 12/19/2024 2:00 PM CDT Office Visit [facility] General Surgery [facility] [address] [place] [address], [address] [place] [address] Bernard Solano MD [address] [place] [address] 175 [place] [address] 12/29/2024 11:40 AM CDT Telemedicine [facility] Multispecialty Care - [facility] 3 [facility], [address] [place] [address] Osiel Telles MD 3 [facility] 5000 [place] [address] 01/13/2025 12:40 PM CDT [facility] [address] [address] [address] [place] [address] Lucy Luna MD 1188 [facility] 157 [place] [address] Scheduled Orders Name Type Priority Associated Diagnoses Orde r Schedule MG DIAGNOSTIC LT DIGI MAMMO LENARD Abnormal mammogram of left breast Expected: 11/24/2024, Expires: 2026 US BREAST LT BIRAD LTD Ultrasound LENARD Abnormal mammogram of left breast Ordered: 11/24/2024 documented as of this encounter Visit Diagnoses Diagnosis Abnormal mammogram of left breast- Primary documented in this encounter Additional Health Concerns Infection Onset Date Last Indicated Resolved Time Influenza - Seasonal 11/14/2024 11/14/2024 025 12:32 AM CDT Assessment Noted Time PHQ-9 Depression Total Score: 0 11/07/19 25 10:46 AM ADULT NEUROPSYCHOLOGIST documented as of this encounter Care Teams Copy Center Associate Relationship Specialty Start Date End Date Lucy Luna MD [address] [address] PCP - General 05/08/24 documented as of this encounter
--- OUTSIDE RECORDS SUMMARY | 2024-12-11 08:22 | XMS_ITS | Encounter Summary ---
Author Organization [facility] Address [address] [place] [address] Care Team Providers Care Clinical Microbiologist Name Role Phone Lucy Luna MD Primary Care Provider [phone] Encounter Details Date Type Department Care Team (Late Contact Info) Description 07/16/[address] [email or web address] [facility] Orthopedic & Sports Medicine - [place] [address] [place], [place] [id number] [phone] Gwyn Scott MD [address] [place], [place] [id number]- Appt Jul.17 Social History Tobacco Use Types Packs/Day Years [...] Sex Assigned at Female 09/23/2024 8:49 AM URANIUM PROCESSING SUPERVISOR Legal Sex Female 11:30 PM URANIUM PROCESSING SUPERVISOR Gender Identity Female 11/14/2024 10:46 AM URANIUM PROCESSING SUPERVISOR Sexual Orientation Straight 11/14/2024 10 :46 AM URANIUM PROCESSING SUPERVISOR documented as of this encounter Plan of Treatment Upcoming Encounters Date Type Department Care Team (Late Contact Info) Description 12/15/2024 9:30 AM CDT Office Visit [facility] Physical Therapy [facility] [address] [place] [address] Piedad Mcfarland, GRACIA 118[address] [facility] [address] [place] [address] Analilia Fulton, PT 1 [place] [address] 12/19/2024 2:00 PM CDT Office Visit [facility] General Surgery - [address], [address] [place] [address] Bernard Solano MD [address] [place] [address] 12/29/2024 11:40 AM CDT [facility] 3 [facility], [address] [place] [address] Osiel Telles MD 3 [facility] [address] [place] [address] 01/13/2025 12:40 PM CDT [facility] [place] [address] [place] [address] [address] [place] [address] [place] [address] [place] [address] [address] [place] [address] documented as of this encounter Visit Diagnoses Not on filedocumented in this encounter Additional Health Concerns Infection Onset Date Last Indicated Resolved Time Respiratory Rule-Out 11/14/2024 11/14/2024 025 4:36 PM URANIUM PROCESSING SUPERVISOR Influenza - Seasonal 11/14/2024 11/14/2024 025 12:32 AM CDT Assessment Noted Time PHQ-9 Depression Total Score: 5 08/30/20 24 12:10 PM CDT documented as of this encounter Care Teams Clinical Microbiologist Relationship Specialty Start Date End Date Lucy Luna MD [address] [address] PCP - General 05/08/24 documented as of this encounter
--- OUTSIDE RECORDS SUMMARY | 2024-12-11 08:22 | XMS_ITS | Encounter Summary ---
Author Organization [facility] Address [address] [place] [address] Care Team Providers Care Sinter Press Operator Name Role Phone Lucy Luna MD Primary Care Provider [phone] Encounter Details Date Type Department Care Team (Latest Contact Info) Description 11/24/2024 [employer] Message Enc [facility] Multispecialty Care [facility] [address] [address] [address] [place], [place] [phone] Lucy Luna MD [address] [place] [address] 157 [place], [place] [phone] Abnormal Mammogram Social History Tobacco Use Types Packs/Day Years [...] Sex Assigned at Female 09/23/2024 8:49 AM FOLDER SEAMER AUTOMATIC Legal Sex Female 11:30 PM FOLDER SEAMER AUTOMATIC Gender Identity Female 11/14/2024 10:46 AM FOLDER SEAMER AUTOMATIC Sexual Orientation Straight 11/14/2024 10 :46 AM FOLDER SEAMER AUTOMATIC documented as of this encounter Plan of Treatment Upcoming Encounters Date Type Department Care Team (Late st Contact Info) Description 12/15/2024 9:30 AM CDT Office Visit [facility] Physical Therapy [address] [facility] [address] [place], [place] [address] Piedad Mcfarland, GRACIA [address] [place] [address] 157 [address] [place] [address] Analilia Fulton, PT 1 [facility] [place] [address] 12/19/2024 2:00 PM CDT Office Visit [facility] General Surgery [address] [place] [address] Bernard Solano MD [address] [place] [address] 12/29/2024 11:40 AM CDT [facility] 3 [facility], [address] [place] [address] Osiel Telles MD 3 [facility] 5000 [place] [address] 01/13/2025 12:40 PM CDT [facility] [address] [address] [address] [place] [address] [place] [address] [place] [address] [address] [place] [address] documented as of this encounter Visit Diagnoses Not on filedocumented in this encounter Additional Health Concerns Infection Onset Date Last Indicated Resolved Time Influenza - Seasonal 11/14/2024 11/14/2024 025 12:32 AM CDT Assessment Noted Time PHQ-9 Depression Total Score: 0 11/07/19 25 10:46 AM FOLDER SEAMER AUTOMATIC documented as of this encounter Care Teams Sinter Press Operator Relationship Specialty Start Date End Date Lucy Luna MD 1188 [facility] [address] [place] [address] PCP - General 05/08/24 documented as of this encounter
--- OUTSIDE RECORDS SUMMARY | 2024-12-11 08:22 | XMS_ITS | Encounter Summary ---
Author Organization [facility] Address [address] [place] [address] Care Team Providers Care Document Specialist Name Role Phone Lucy Luna MD Primary Care Provider [phone] Encounter Details Date Type Department Care Team (Late Contact Info) Description 06/24/2024 Sonocinet Message Enc [facility] Orthopedic & Sports Medicine - [place] [address] [place], [place] [id number] [phone] Rajiv Patrick, HAT FORMER [address] [place], [place] [phone] Surgery sunday Social History Tobacco Use Types Packs/Day Years [...] Sex Assigned at Female 09/23/2024 8:49 AM SALESFORCE ADMINISTRATOR Legal Sex Female 11:30 PM SALESFORCE ADMINISTRATOR Gender Identity Female 11/14/2024 10:46 AM SALESFORCE ADMINISTRATOR Sexual Orientation Straight 11/14/2024 10 :46 AM SALESFORCE ADMINISTRATOR documented as of this encounter Plan of Treatment Upcoming Encounters Date Type Department Care Team (Late st Contact Info) Description 12/15/2024 9:30 AM CDT Office Visit [facility] Physical Therapy [facility] [facility] [address] [place] [address] Piedad Mcfarland, GRACIA [address] [facility] [address] [place] [address] Analilia Fulton, PT 1 [facility] [place] [address] 12/19/2024 2:00 PM CDT Office Visit [facility] General Surgery [address], [address] [place] [address] Bernard Solano MD [address] [place] [address] 12/29/2024 11:40 AM CDT [facility] 3 [facility], [address] [place] [address] Osiel Telles MD 3 [facility] [address] [place] [address] 01/13/2025 12:40 PM CDT Office Visit [facility] [place] [address] [place] [address] [address] [place] [address] [place] [address] [place] [address] [address] [place] [address] documented as of this encounter Visit Diagnoses Not on filedocumented in this encounter Additional Health Concerns Infection Onset Date Last Indicated Resolved Time Respiratory Rule-Out 11/14/2024 11/14/2024 025 4:36 PM SALESFORCE ADMINISTRATOR Influenza - Seasonal 11/14/2024 11/14/2024 025 12:32 AM CDT Assessment Noted Time PHQ-9 Depression Total Score: 5 05/09/20 24 12:10 PM CDT documented as of this encounter Care Teams Document Specialist Relationship Specialty Start Date End Date Lucy Luna MD [address] [address] PCP - General 05/08/24 documented as of this encounter
--- OUTSIDE RECORDS SUMMARY | 2024-12-11 08:22 | XMS_ITS | Referral Summary ---
Author Organization [facility] Address [address] [place] [id number] Care Team Providers Care Powder Guard Name Role Phone Lucy Luna MD Primary Care Provider [phone] Encounters Date Type Department Care Team Description 11/28/2024 7:56 AM CDT - 11/28/2024 11:59 PM CDT Hospital Encounter [facility] [address] [place] [address] Other abnormal and inconclusive findings on diagnostic imaging of breast Discharge Disposition: Discharge to home or self care 11/28/2024 7:55 AM CDT - 11/28/2024 11:59 PM CDT Hospital Encounter [address] [address] Other abnormal and inconclusive findings on diagnostic imaging of breast Discharge Disposition: Discharge to home or self care 11/26/2024 Results Follow-Up [facility] [place] [phone] Dahlia Dumas NP 11/25/2024 11:52 AM CDT - 11/25/2024 11:59 PM CDT Hospital Encounter [address] [address] Sore throat Discharge Disposition: Discharge to home or self care 11/25/2024 11:30 AM CDT Office Visit [facility] [place] [address] [phone] Brooke Banerjee NP Sore throat (Primary Dx); Bronchitis 11/20/2024 12:22 PM CDT - 11/20/2024 11:59 PM CDT Hospital Encounter [facility] [address] [place] [address] Encounter for screening for osteoporosis Discharge Disposition: Discharge to home or self care 11/20/2024 12:22 PM CDT - 11/20/2024 11:59 PM CDT Hospital Encounter [facility] [address] [place] [address] Encounter for screening mammogram for malignant neoplasm of breast Discharge Disposition: Discharge to home or self care 11/12/2024 Telephone [facility] Minimally Invasive Surgery [address] [place] [address] Medical Office Building [address] [place] [address] Dahlia Thomas RN from Last 3 Months Allergies Active Allergy Reactions Criticality Noted Date [...] by mouth every 6 (six) hours 08/20/20 24 Active diazePAM (VALIUM) 2 mg tablet Take [...] 025 Active Problems No known active problems Social History Tobacco Use Types Packs/Day Years [...] Orientation Asexual 11/26/2024 4: 48 PM CDT Last Filed Vital Signs Vital Sign Reading [...] 11/25/2024 11:21 AM CDT Plan of Treatment Not on file Procedures Procedure Name Priority Date/Time Associated Diagnosis [...] correlate for the mammographic findings is appreciated. Lucy Luna MD IM MAMMO PROCEDURES Final Resul t * Throat culture Throat (11/25/2024 11:52 AM CDT) Report Final Report: No growth of pathogens. Comment:Testing performed by : [facility], [address] [facility], [place]., [address] Throat 11/25/2024 11:5 2 AM CDT 11/25/2024 9:50 PM CDT Narrative BELENNER - 11/26/2024 6:00 PM CDT Testing performed by [facility] Microbiology Laboratory ([phone]). Brooke Banerjee NP LAB MICROBIOLOGY - GENERAL ORDER JELANI Final Result BRITTANIE ROA [address] [place] [address] * POCT rapid strep A (11/25/2024 11:41 AM CDT) Rapid Strep A, POC Negative Negative Swab 11/25/2024 11:4 1 AM CDT Brooke Banerjee NP POINT OF CARE TEST ORDERABLES Fi nal [...] status. History of taking vitamin-D and calcium Ice Guard Inspector/Model: Fast[employer] Discovery SL (S/N [id number]) Facility LSC value of 0.022 for the [...] Juana Garcia M.D. TW: TW Report ID: [id number] Reading Location: [id number] Procedure Note Juana Garcia MD - 11/22/2024 EXAM DESCRIPTION: DEXA AXIAL SKELETON BONE DENSITY 1 OR MORE SITES REASON FOR STUDY: 59 y/o year old F with given history of:Postmenopausal status. History of taking vitamin-D and calcium Ice Guard Inspector/Model: [employer] Discovery SL (S/N [id number]) Facility LSC value of 0.022 for the [...] Electronically signed by Juana Garcia M.D. TW: TAYLOR Report ID: [id number] Reading Location: [id number] Piedad Mcfarland NP IMG DXA PROCEDURES Final [...] Final Result from Last 3 Months Insurance [employer] [facility] [employer] [facility] [employer] Care Teams Powder Guard Relationship Specialty Start Date End Date Lucy Luna MD [address] [place] [address] PCP - General Internal Medicine 09/30/24
--- OUTSIDE RECORDS SUMMARY | 2024-12-11 08:22 | XMS_ITS | Encounter Summary ---
Author Organization [facility] Address [address] [place] [address] Care Team Providers Care Strainer Mill Operator Name Role Phone Lucy Luna MD Primary Care Provider [phone] Encounter Details Date Type Department Care Team (Late Contact Info) Description 11/14/2024 MyChart Message Enc [facility] [address] [place] [address] [address] [place] [address] Lucy Luna MD [address] [place] [address] Flu Social History Tobacco Use Types Packs/Day Years [...] Sex Assigned at Female 09/23/2024 8:49 AM CARETAKER Legal Sex Female 11:30 PM CARETAKER Gender Identity Female 11/14/2024 10:46 AM CARETAKER Sexual Orientation Straight 11/14/2024 10 :46 AM CARETAKER documented as of this encounter Plan of Treatment Upcoming Encounters Date Type Department Care Team (Late st Contact Info) Description 12/15/2024 9:30 AM CDT Office Visit [facility] Physical Therapy [address] [place] [address] Piedad Mcfarland, GRACIA [address] [facility] [address] [place] [address] Analilia Fulton, PT 1 [place] [address] 12/19/2024 2:00 PM CDT Office Visit [facility] General Surgery [address], [address] [place] [phone] Bernard Solano MD [address] [place] [address] 12/29/2024 11:40 AM CDT [facility] [address] [facility], [address] [place] [address] Osiel Telles MD 3 [facility] [address] [place] [address] 01/13/2025 12:40 PM CDT [facility] [place] [facility] [place] [address] [place] [address] [address] [place] [address] [place] [address] [place] [address] [address] [place] [address] documented as of this encounter Visit Diagnoses Not on filedocumented in this encounter Additional Health Concerns Infection Onset Date Last Indicated Resolved Time Respiratory Rule-Out 11/14/2024 11/14/2024 025 4:36 PM CARETAKER Influenza - Seasonal 11/14/2024 11/14/2024 025 12:32 AM CDT Assessment Noted Time PHQ-9 Depression Total Score: 0 11/07/19 25 10:46 AM CARETAKER documented as of this encounter Care Teams Strainer Mill Operator Relationship Specialty Start Date End Date Lucy Luna MD [address] [address] PCP - General 05/08/24 documented as of this encounter
--- OUTSIDE RECORDS SUMMARY | 2024-12-11 08:22 | XMS_ITS | Encounter Summary ---
Author Organization [facility] Address [address] [place] [address] Care Team Providers Care Assessment Services Manager Name Role Phone Lucy Luna MD Primary Care Provider [phone] Encounter Details Date Type Department Care Team (Late Contact Info) Description 07/04/2024 Implicit Monitoring Solutionst Message Enc [facility] Orthopedic & Sports Medicine - [place] [address] [place], [place] [phone] Gwyn Scott MD [address] [place], [place] [phone] Allergic reaction Social History Tobacco Use Types Packs/Day [...] Sex Assigned at Female 09/23/2024 8:49 AM MAINTENANCE CRAFTSMAN Legal Sex Female 11:30 PM MAINTENANCE CRAFTSMAN Gender Identity Female 11/14/2024 10:46 AM MAINTENANCE CRAFTSMAN Sexual Orientation Straight 11/14/2024 10 :46 AM MAINTENANCE CRAFTSMAN documented as of this encounter Plan of Treatment Upcoming Encounters Date Type Department Care Team (Late Contact Info) Description 12/15/2024 9:30 AM CDT Office Visit [facility] Physical [facility] [address] [place] [address] Piedad Mcfarland, GRACIA [address] [facility] [address] [place] [address] Analilia Fulton, PT 1 [facility] [address] 12/19/2024 2:00 PM CDT Office Visit [facility] General Surgery [address], [address] [place] [phone] Bernard Solano MD [address] [place] [address] 12/29/2024 11:40 AM CDT [facility] [address] [facility], [address] [place] [address] Osiel Telles MD 3 [facility] [address] [place] [address] 01/13/2025 12:40 PM CDT [facility] [place] [address] [place] [address] [address] [place] [address] [place] [address] [place] [address] [address] [place] [address] documented as of this encounter Visit Diagnoses Not on filedocumented in this encounter Additional Health Concerns Infection Onset Date Last Indicated Resolved Time Respiratory Rule-Out 11/14/2024 11/14/2024 025 4:36 PM MAINTENANCE CRAFTSMAN Influenza - Seasonal 11/14/2024 11/14/2024 025 12:32 AM CDT Assessment Noted Time PHQ-9 Depression Total Score: 5 05/09/20 24 12:10 PM CDT documented as of this encounter Care Teams Assessment Services Manager Relationship Specialty Start Date End Date Lucy Luna MD [address] [address] PCP - General 05/08/24 documented as of this encounter
--- OUTSIDE RECORDS SUMMARY | 2024-12-11 08:22 | XMS_ITS | Clinical Summary ---
Author Organization [facility] Address [address] [place] [address] Care Team Providers Care Newspaper Columnist Name Role Phone Lucy Luna MD Primary Care Provider [phone] Allergies Active Allergy Reactions Criticality Noted Date Comments Azithromycin Hives Medium 09/11/2019 Benzoin Rash Medium 05/21/2018 Celecoxib Hives Medium 11/19/2008 HIVES Ciprofloxacin Dizziness,Other (see comment) Low 05/21/2018 Diltiazem Headache 05/27/2024 Erythromycin Hives Medium 12/27/2020 Orphenadrine Hives Medium 09/11/2019 Prednisone Other (see comment) Low 05/21/2018 Hypertension Blood pressure elevation Hypertension Blood pressure elevation Silver Rash Medium 04/15/2012 Sulfa Antibiotics Hives Medium 12/27/2020 Sulfamethoxazole-Trimeth oprim Hives Medium 05/21/2018 Tape Rash,Itching,Rednes s High 08/04/2017 Skin peels All adhesive- cannot have on more than 1 day Vancomycin GI Upset,Other (see comment) Low 05/21/2018 Rectal bleeding Wound Dressing Adhesive Hives High 07/07/2024 Steri strips Medications vitamin D2, ergocalciferol, (DRISDOL) 1.25 mg capsuleIndicati ons:Vitamin D deficiency Take 1 capsule (50,000 Units total) by mouth every 7 days. 12 capsule 3 024 Active probiotic (FLORAJEN3) Cap capsule Take 1 capsule by mouth daily. Active Cyanocobalamin (VITAMIN B 12 OR) Take 1 tablet by mouth daily. Active irbesartan (AVAPRO) 300 MG tabletIndicatio ns:Benign essential HTN Take 1 tablet (300 mg total) by mouth daily. 90 tablet 1 024 Active Zinc 100 MG Tab Active tirzepatide (ZEPBOUND) 2.5 MG/0.5ML injectionIndica tions:Weight Loss Indications: Weight Loss Inject 2.5mg subcutaneous once weekly x 4 weeks then increase to 5mg weekly 2 mL 1 Active omeprazole (PRILOSEC) 40 MG capsuleIndicati ons:Gastroesoph ageal reflux disease without esophagitis Take 1 capsule (40 mg total) by mouth daily. 90 capsule 025 Active colestipol (COLESTID) 1 g tablet Take 1 tablet (1 g total) by mouth daily. Active amLODIPine (NORVASC) 5 MG tablet Take 1 tablet (5 mg total) by mouth 2 (two) times daily. Active FLUoxetine (PROZAC) 20 MG capsuleIndicati ons:LEONOR (generalized anxiety disorder),Major depressive disorder, recurrent episode, moderate (CMS/HCC) Take 1 capsule (20 mg total) by mouth daily. 30 capsule 2 Active Albuterol-Budes onide (AIRSUPRA) 90-80 MCG/ACT AerosolIndicati ons:Mild intermittent reactive airway disease with acute exacerbation (HHS/HCC) Inhale 2 puffs into the lungs as needed (for shortness of breath or wheezing. max 12 puffs/24 hours. rinse mouth after use.). 32.1 g 1 Active doxycycline hyclate (VIBRAMYCIN) 100 MG capsuleIndicati ons:Sinus congestion Take 1 capsule (100 mg total) by mouth 2 (two) times daily for 10 days. 20 capsule 025 2024 Active amLODIPine (NORVASC) 10 MG tabletIndicatio ns:Benign essential HTN Take 1 tablet (10 mg total) by mouth daily. 90 tablet 1 024 2024 Discontinued dicyclomine (BENTYL) 20 MG tabletIndicatio ns:Colitis Take 1 tablet (20 mg total) by mouth every 6 (six) hours. 30 tablet 024 2024 Discontinued clindamycin (CLEOCIN) 300 MG capsule Take 1 capsule (300 mg total) by mouth 4 (four) times daily. 025 2024 Discontinued(O ther- Please enter comment in Notes field) HYDROcodone-augustin taminophen (NORCO) 5-325 MG tablet Take 1 tablet by mouth every 6 (six) hours as needed for Pain. 2024 Discontinued(O ther- Please enter comment in Notes field) oseltamivir (TAMIFLU) 75 MG capsuleIndicati ons:Influenza B Take 1 capsule (75 mg total) by mouth 2 (two) times daily for 5 days. 10 capsule 025 2024 Hospital, Clinic, or Other Facility Administered Medication Ordered Dose Route Frequency Start Date End Date Status methylPREDNISolone acetate (DEPO-Medrol) injection 40 mgIndications:Left sided abdominal pain 40 mg IM Once 11/14/2024 11/14/2024 Ended ketorolac (TORADOL) injection 60 mgIndications:Left sided abdominal pain 60 mg IM Once 11/14/2024 11/14/2024 Ended Active Problems Problem Noted Date Diagnosed Date Rectal tear 11/05/2024 Overview (11/05/2024): 4th degree tear Strep pharyngitis 07/02/2024 Carpal tunnel syndrome on left 06/11/2024 Adrenal hyperplasia (HHS/HCC) 12/21/2023 Mixed hyperlipidemia 12/21/2023 Overview (06/09/2024): Last Assessment & Plan: On statin therapy LDL cholesterol is already less than 70 Coronary artery disease invo lving [place] coronary artery of [place] heart without angina pectoris 12/12/2023 Overview (06/09/2024): Nonobstructive in LAD by catheterization 2023 Last Assessment & Plan: Nonobstructive coronary disease December 01 Morbid obesity with BMI of 40.0-44.9, adult 06/10 Benign essential hypertension 10/21/2019 Cervical radiculitis 10/21/2019 Diverticulosis 05/08/2013 DANA (obstructive sleep apnea) 05/08/1999 Overview (06/09/2024): Doesn't tolerate CPAP, had nasal surg Last Assessment & Plan: Patient is using her CPAP Encounters Date Type Department Care Team Description 12/08/2024 9:30 AM CDT Office Visit [facility] [address] [address] Piedad Mcfarland, PRINTING FILM STRIPPER Analilia Fulton, PT Back Pain 12/08/2024 Travel 12/04/2024 9:40 AM CDT Office Visit [place] [address] [address] [address] [place] [address] Piedad Mcfarland, PRINTING FILM STRIPPER Weight Check 12/04/2024 Travel 12/03/2024 MyChart Message Enc [facility] [address] [facility] [address] [place] [address] Piedad Mcfarland, PRINTING FILM STRIPPER DEXA 12/01/2024 11:00 AM CDT Office Visit [facility] [address] [facility] [address] [place] [address] Piedad Mcfarland, PRINTING FILM STRIPPER Analilia Fulton, PT Back Pain 12/01/2024 Travel 11/28/2024 Scan HEALTH INFO SRVCS Scanned, [facility] Mammogram (SCAN); Ultrasound (SCAN) 11/25/2024 Scan [facility] HEALTH INFO SRVCS Scanned, [facility] 11/24/2024 Misc Documentation [place] [id number] [address] [address] [place] [address] Piedad Mcfarland, PRINTING FILM STRIPPER Schedule Test 11/24/2024 Telephone [facility] [address] [address] [address] [place] [address] Lucy Luna MD Mammography Order 11/24/2024 Telephone [facility] - [address] [place] [address] Lucy Luna MD Referral 11/24/2024 Telephone [facility] - [address], [address] [place] [phone] Osiel Telles MD Results 11/24/2024 MyChart Message Enc [facility] - [address] [place] [address] Lucy Luna MD Abnormal Mammogram 11/21/2024 MyChart Message Enc [facility] Emergency Department - [address] [place] [address] Piedad Mcfarland PRINTING FILM STRIPPER Zepbound 11/20/2024 7:00 AM CDT Laboratory Only [facility] - [address] [place] [address] Lucy Luna MD 11/20/2024 Scan [email or web address] HEALTH INFO SRVCS Scanned, [facility] Bone Density Report (SCAN) 11/20/2024 - 11/20/2024 11:59 PM CDT [facility] [address] [place] [address] Discharge Disposition: Home or Self Care (Routine Discharge) 11/20/2024 Orders Only [facility] - [address] [place] [address] Lise Jose MA 11/20/2024 Travel 11/17/2024 Telephone [facility] - [address], [address] [place] [phone] Osiel Telles MD Reschedule 11/14/2024 10:40 AM INFORMATICS NURSE Office Visit [place] [address] [address] [address] [place] [address] Lucy Luna MD Follow Up (Acute - pain under rib cage.); Earache (Down neck and into shoulder. SX 2 days ); Sore Throat (Sx started this morning ); Cough; Abdominal Pain; Nausea 11/14/2024 Travel 11/14/2024 MyChart Message Enc [place] [address] [address] [address] [place] [address] Lucy Luna MD Flu 11/13/2024 8:00 PM INFORMATICS NURSE - 11/13/2024 11:59 PM INFORMATICS NURSE Hospital Encounter [facility] [address] [place] [address] Osiel Telles MD Obstructive Sleep Apnea Discharge Disposition: Home or Self Care (Routine Discharge) 11/13/2024 Travel 11/12/2024 10:15 AM INFORMATICS NURSE Office Visit [facility] [address] Piedad Mcfarland, PRINTING FILM STRIPPER Analilia Fulton, PT Back Pain 11/12/2024 Travel 11/07/2024 1:30 PM INFORMATICS NURSE Allied Health/Nurse Visit [place] [address] [address] [address] [place] [address] Lucy Luna MD Allied Health Visit (Depo medrol inj per Dr. Luna ) 11/07/2024 10:20 AM INFORMATICS NURSE Telemedicine [place] [address] [address] [address] [place] [address] Lucy Luna MD Dental Problem (Pt states she never started steroid pack as pt was told to not take zpack due to high BP ) 11/07/2024 Travel 11/07/2024 [facility] [address] [facility] [address] [place] [address] Lucy Luna MD Other 11/07/2024 MyChart Message Enc [facility] [address] [facility] [address] [place] [address] Lucy Luna MD Root canal w/abcess 11/05/2024 9:40 AM INFORMATICS NURSE Office Visit [place] [address] [facility] [address] [place] [address] Piedad Mcfarland, PRINTING FILM STRIPPER Medication Check ; Blood Sugar Check 11/05/2024 Travel 10/31/2024 MyChart Message Enc [facility] [address] [facility] [address] [place] [address] Lucy Luna MD Compound tirzepitide 10/01/2024 11:00 AM INFORMATICS NURSE Office Visit [facility] [address] [facility] [address] [place] [address] Lucy Luna MD Weedon, Meaghan B, PT Wrist Pain 10/01/2024 9:20 AM INFORMATICS NURSE Office Visit [facility] - [place] [address] [facility] [address] [place] [address] Osiel Telles MD Obstructive Sleep Apnea 10/01/2024 Telephone [facility] Emergency Department - [facility] [address] [facility], [address] [place] [address] Osiel Telles MD Record Request 10/01/2024 Travel 09/30/2024 Scan HEALTH INFO SRVCS Scanned, [facility] Sleep Study (SCAN) 09/25/2024 Telephone [facility] [address] [facility] [address] [place] [address] Lucy Luna MD Referral 09/24/2024 9:30 AM INFORMATICS NURSE Office Visit [facility] [address] [place] [address] Lucy Luna MD Weedon Analilia B, PT Wrist Pain 09/24/2024 Travel 09/22/2024 Scan [facility] HEALTH INFO SRVCS Scanned, [facility] Colonoscopy Report (SCAN) 09/19/[address] [facility] - [employer] [address] [place] [address] Lucy Luna MD Mammogram and Bone Scan from Last 3 Months Immunizations Name Administration Dates Next Due Influenza (Generic) 06/21/2021 Influenza Adult (Generic) 06/28/2022,,06/26/2019,09/26/2018,2016,09/21/2016,08/16/2015,06/22/2014,07/09/2013,1 10/15/2011,07/19/2007 Tdap (Generic) 12/17/2020,11/03/2010 Family History Medical History Relation Comments Cancer Father Skin Irritable bowel syndrome Father Arthritis Mother COPD Mother Cancer Mother Breast Dementia Mother Heart Disease Mother Hypertension Mother Heart Disease Sister 1 Thyroid nodules Sister 2 Relation Status Comments Father Mother Sister 1 Sister 2 Alive Social History Tobacco Use Types Packs/Day Years Used Date Smoking Tobacco: Never Passive Smoke Exposure: Never Smokeless Tobacco: Never Tobacco Cessation:Counseling Given: No Comments:Counseled by Dr. Luna. Alcohol Use Standard Drinks/Week Comments Not Currently 0 (1 standard drink = 0.6 oz pur e alcohol) PHQ-2 Answer Date Recorded Patient Health Questionnaire-2 Score 0 11/07/2024 Comments No Sex and Gender Information Value Date Recorded Sex Assigned at Female 09/23/2024 8:49 AM INFORMATICS NURSE Legal Sex Female 11:30 PM INFORMATICS NURSE Gender Identity Female 11/14/2024 10:46 AM INFORMATICS NURSE Sexual Orientation Straight 11/14/2024 10 :46 AM INFORMATICS NURSE Last Filed Vital Signs Vital Sign Reading Time Taken Comments Blood Pressure 140/80 12/04/2024 11:01 AM CDT Pulse 70 12/04/2024 9:53 AM CDT Temperature 36.4 C (97.6 F) 12/04/2024 9:53 AM CDT Respiratory Rate 18 12/04/2024 9:53 AM CDT Oxygen Saturation 98% 12/04/2024 9:53 AM CDT Inhaled Oxygen Concentration - - Weight 123.8 kg (273 lb) 12/04/2024 9:53 AM CDT Height 165.1 cm (5' 5 ) 12/04/2024 9:53 AM CDT Body Mass Index 45.43 12/04/2024 9:53 AM CDT Plan of Treatment Upcoming Encounters Date Type Department Care Team (Late st Contact Info) Description 12/15/2024 9:30 AM CDT Office Visit [facility] [address] [place] [address] Piedad Mcfarland, PRINTING FILM STRIPPER [address] [place] [address] Analilia Fulton, PT [address] [place], [place] [id number] 12/19/2024 2:00 PM CDT Office Visit [facility] General Surgery - [address], [address] [place] [address] Bernard Solano MD [address] [place] [address] 12/29/2024 11:40 AM CDT Telemedicine [facility] - [facility] [address] [facility], [address] [place] [phone] Osiel Telles MD [address] [facility] [address] [place] [address] 01/13/2025 12:40 PM CDT Office Visit [facility] - [employer] [address] [place] [address] [address] [place] [address] Lucy Luna MD [address] [facility] [address] [place] [address] Health Maintenance Due Date Last Done Comments ASCVD Statin 1966 Pneumococcal Vaccine: Pediatrics (0 to 5 Years) and At-Risk Patients (6 to 64 Years) (1 of 2 - PCV) 01/25/1972 Hepatitis B Vaccines (1 of 3 - 19+ 3-dose series) 1985 Zoster Vaccines (1 of 2) 01/25/2016 COVID-19 Vaccine ( - season) 2024 07/06/2021, 11/08/2020, 10/18/2020 Annual Physical 05/09/2025 05/09/2024 Mammogram Screening 11/28/2026 11/28/2024, 11/28/2024, 11/28/2024, Additional history exists DTaP, Tdap and Td Vaccines (3 - Td or Tdap) 12/17/2030 12/17/2020, 11/03/2010 Colorectal Cancer Screening Colonoscopy (10 Years) 09/22/2034 09/22/2024 Hepatitis C Completed 05/09/2024 PHQ-2 (Physician [place]) Completed 11/07/2024 Meningococcal B Vaccine Aged Out No l onger eligible based on patient's age to complete this topic Meningococcal Vaccine Aged Out No brady lyle eligible based on patient's age to complete this topic RSV Immunizations Under 20 Months Aged Out No longer eligible based on patient's age to complete this topic Procedures Procedure Name Priority Date/Time Associated Diagnosis Comments MAMMOGRAM GENERIC (SCAN ORDER) 11/28/2024 MAMMOGRAM GENERIC (SCAN ORDER) 11/28/2024 ULTRASOUND GENERIC (SCAN ORDER) 11/28/2024 ULTRASOUND GENERIC (SCAN ORDER) 11/28/2024 TESTOSTERONE, FREE & TOTAL Routine 11/20/2024 7:30 AM CDT Other fatigue COMPREHENSIVE METABOLIC PANEL Routine 11/20/2024 7:30 AM CDT Abnormal kidney function THYROID STIM HORMONE TSH Routine 11/20/2024 7:30 AM CDT Screening for thyroid disorder THYROXINE, FREE (FT4) Routine 11/20/2024 7:30 AM CDT Screening for thyroid disorder FREE T3 Routine 11/20/2024 7:30 AM CDT Screening for thyroid disorder PROGESTERONE Routine 11/20/2024 7:30 AM CDT Other fatigue ESTRADIOL Routine 11/20/2024 7:30 AM CDT Other fatigue HEMOGLOBIN, GLYCOSYLATED Routine 11/20/2024 7:30 AM CDT Prediabetes Other fatigue MAMMOGRAM GENERIC (SCAN ORDER) 11/20/2024 BONE DENSITY GENERIC (SCAN ORDER) 11/20/2024 CULTURE STREP A Routine 11/14/2024 1:16 PM INFORMATICS NURSE Sore throat STREP A RAPID Routine 11/14/2024 Sore throat CORONAVIRUS (COVID-19) INFLUENZA A & B ANTIGEN IA PANEL Routine 11/14/2024 Acute cough POLYSOMNOGRAPHY 4 OR MORE PARAMETERS WITH CPAP Routine 11/13/2024 8:00 PM INFORMATICS NURSE Obstructive sleep apnea (adult) (pediatric) SLEEP STUDY GENERIC (SCAN ORDER) 09/30/2024 COLONOSCOPY GENERIC (SCAN ORDER) 09/22/2024 HEPATITIS C ANTIBODY Routine 05/09/2024 11:54 AM CDT Annual physical exam Establishing care with new doctor, encounter for General medical exam Encounter for hepatitis C screening test for low risk patient Drug therapy from Last 3 Months or Most Recently Relevant to Health Maintenance Results * MAMMOGRAM GENERIC (SCAN ORDER) (11/28/2024) Only the most recent of3 resultswithin the time period is included. Anatomical Region Laterality Modality Other 11/28/2024 [email or web address] [facility] Scanned SCANNING Final Resu lt * ULTRASOUND GENERIC (SCAN ORDER) (11/28/2024) Only the most recent of2 resultswithin the time period is included. Anatomical Region Laterality Modality Other 11/28/2024 [employer] [facility] Scanned SCANNING Final Resu lt * (ABNORMAL) HEMOGLOBIN, GLYCOSYLATED (11/20/2024 7:30 AM CDT) HGB A1C 6.1 4.5 - 6.2 % 11/20/2024 7:42 PM CDT [facility] ESTIMATED AVG GLUCOSE 128(H) 74 - 106 MG/DL 11/20/2024 7:42 PM CDT [facility] 11/20/2024 7:30 AM CDT Result [facility] Piedad Mcfarland NP LABORATORY Final Resul t Performing Organization Address [facility]/ZIP Co de Phone Number [facility] [address] [place] [address], [place] [phone] * FREE T3 (11/20/2024 7:30 AM CDT) FREE T3 3.0 2.2 - 3.9 PG/ML 11/20/2024 6:18 PM CDT [facility] 11/20/2024 7:30 AM CDT Piedad Mcfarland NP LABORATORY Final Resul t [facility] [address] [place] [address], [place] [phone] * TESTOSTERONE, FREE & TOTAL (11/20/2024 7:30 AM CDT) Pathologist [facility] TESTOSTERONE TOTAL 10 2 - 45 ng/dL [facility] Comment: For additional information, please refer to https://education.Kaliki/faq/QGM202 (This link is being provided for informational/educational purposes only.) (Note) This test was developed and its analytical performance characteristics have been determined by [employer]. It has not been cleared or approved by the FDA. This assay has been validated pursuant to the CLIA regulations and is used for clinical purposes. TESTOSTERONE FREE 1.6 0.1 - 6.4 pg/mL [employer] [facility] Comment: (Note) This test was developed and its analytical performance characteristics have been determined by [employer]. It has not been cleared or approved by the FDA. This assay has been validated pursuant to the CLIA regulations and is used for clinical purposes. [facility] [address] [place] [address],[place] [address] Jodi Caldwell MD, PhD 11/20/2024 7:30 AM CDT 11/21/2024 8:15 AM CDT Narrative Resulting Agency Comment Performing Organization Information: Site ID: [id number] Name: [employer] Address: [address] [place] [address], [address] [address] Director: Jodi Caldwell MD,PhD Piedad Mcfarland NP LABORATORY Final Resul t [facility] [address] [place] [address], [address] [place] [phone], * (ABNORMAL) COMPREHENSIVE METABOLIC PANEL (11/20/2024 7:30 AM CDT) Pathologist [facility] SODIUM S/P/B 139 136 - 145 MMOL/L 11/20/2024 3:03 PM CDT -[facility] POTASSIUM S/P/B 3.9 3.5 - 5.1 MMOL/L 11/20/2024 3:03 PM [facility] CHLORIDE S/P/B 103 98 - 107 MMOL/L 11/20/2024 3:03 PM T [facility] CO2 27.8 21 - 32 MMOL/L 11/20/2024 3:03 PM T [facility] GLUCOSE 98 70 - 99 MG/DL 11/20/2024 3:03 PM T [facility] BUN 16 7 - 18 MG/DL 11/20/2024 3:03 PM T [facility] CREATININE S/P/B 0.76 0.55 - 1.02 MG/DL 11/20/2024 3:03 PM [facility] CALCIUM S/P/B 8.6 8.4 - 10.5 MG/DL 11/20/2024 3:03 PM T [facility] BILIRUBIN TOTAL S/P/B 0.3 0.2 - 1.0 MG/DL 11/20/2024 3:03 PM T [facility] ALKALINE PHOSPHATASE S/P/B 84 46 - 118 U/L 11/20/2024 3:03 PM T [facility] AST 11(L) 15 - 37 U/L 11/20/2024 3:03 PM [facility] ALT 21 14 - 59 U/L 11/20/2024 3:03 PM T [facility] TOTAL PROTEIN S/P/B 7.7 6.4 - 8.2 G/DL 11/20/2024 3:03 PM T [facility] ALBUMIN S/P/B 3.5 3.4 - 5.0 G/DL 11/20/2024 3:03 PM T [facility] ANION GAP 8.2 5 - 15 MMOL/L 11/20/2024 3:03 PM T [facility] Comment:REFERENCE RANGE NOT ESTABLISHED OSMOLALITY (CALC) 289 MOSM/KG 025 3:03 PM CDT [facility] Comment:REFERENCE RANGE NOT ESTABLISHED GFR ESTIMATE >90 >90 ML/MIN/1. 73 M2 11/20/2024 3:03 PM CDT [facility] GFR NOTES GFR REFERENCE S: 11/20/2024 3:03 PM CDT [facility] Comment: THE ESTIMATED GFR IS CALCULATED USING THE 2020 CKD-EPI EQUATION. THE FOLLOWING CATEGORIES FOR GRADING RENAL FUNCTION ARE RECOMMENDED BY THE INTERNATIONAL SOCIETY OF NEPHROLOGY (KDIGO 2012 CLINICAL PRACTICE GUIDELINE). G1,NORMAL OR HIGH: >89 ml/min/1.73 m2 G2,MILDLY DECREASED: 60-89 ml/min/1.73 m2 G3A,MILDLY TO MODERATELY DECREASED: 45-59 ml/min/1.73 m2 G3B,MODERATELY TO SEVERELY DECREASED: 30-44 ml/min/1.73 m2 G4,SEVERELY DECREASED: 15-29 ml/min/1.73 m2 G5,KIDNEY FAILURE: <15 ml/min/1.73 m2 11/20/2024 7:30 AM CDT us Piedad Mcfarland NP LABORATORY Final Resul t [facility] [address] [place] [address], * ESTRADIOL (11/20/2024 7:30 AM CDT) ESTRADIOL <11 PG/ML 11/20/2024 6:[address] [facility] Comment: AGE 0 TO 10 YEARS: <11 TO 20 pg/mL FOLLIC PHASE: 21 TO 165 pg/mL MID CYCLE: 50 TO 367 pg/mL LUTEAL PHASE: 40 TO 259 pg/mL POST MENOPAUSAL NOT ON HRT: <11 TO 58 pg/mL POST MENOPAUSAL ON HRT: <11 TO 462 pg/mL ASSAY PERFORMED BY CHEMILUMINESCENCE METHODOLOGY USING [employer]EMENS [employer]. PATIENT RESULTS DETERMINED BY ASSAYS USING DIFFERENT MANUFACTURERS FOR METHODS MAY NOT BE COMPARABLE. 11/20/2024 7:30 AM CDT Piedad Mcfarland NP LABORATORY Final Resul t Performing Organization Address [facility] de Phone Number [facility] [address] [place] [address], [place] [phone] * THYROXINE, FREE (FT4) (11/20/2024 7:30 AM CDT) FREE T4 1.11 0.76 - 1.46 NG/DL 11/20/2024 5:19 PM CDT [facility] 11/20/2024 7:30 AM CDT us Piedad Mcfarland NP LABORATORY Final Resul t Performing Organization Address [facility] de Phone Number [facility] [address] [place] [address], [place] [phone] * THYROID STIM HORMONE TSH (11/20/2024 7:30 AM CDT) TSH 1.037 0.358 - 3.740 uIU/ML 11/20/2024 3:03 PM CDT [facility] 11/20/2024 7:30 AM CDT us Piedad Mcfarland NP LABORATORY Final Resul t Performing Organization Address [facility] de Phone Number [facility] [address] [place] [address], [place] [phone] * PROGESTERONE (11/20/2024 7:30 AM CDT) PROGESTERONE 0.3 NG/ML 11/20/2024 6:18 PM CDT [facility] Comment: FOLLIC PHASE: 0.2 TO 1.7 ng/mL LUTEAL PHASE: 2.3 TO 24.2 ng/mL POST MENAPAUSAL: <0.2 TO 0.9 ng/mL 1ST TRIMESTER: 11.4 TO 41.0 ng/mL 2ND TRIMESTER: 13.9 TO 156.0 ng/mL 3RD TRIMESTER: 51.4 TO >200.0 ASSAY PERFORMED BY CHEMILUMINESCENCE METHODOLOGY USING SIEMENS [employer] [facility]. PATIENT RESULTS DETERMINED BY ASSAYS USING DIFFERENT MANUFACTURERS FOR METHODS MAY NOT BE COMPARABLE. 11/20/2024 7:30 AM CDT Piedad Mcfarland [employer] [facility] Final Resul t [facility] [address] [place] [address], [place] [phone] * BONE DENSITY GENERIC (SCAN ORDER) (11/20/2024) Anatomical Region Laterality Modality Other 11/20/2024 [facility] Scanned SCANNING Final Resu lt * CULTURE STREP A (MG/SJS/SMD Only) (11/14/2024 1:16 PM INFORMATICS NURSE) THROAT CULTURE STREP A ONLY Negative for Group A Streptococci Negative for Group A Streptococci 11/16/2024 10:31 AM CDT [facility] STRUCTURE OF ANTERIOR PORTION OF NECK / Unknown 11/14/2024 1:16 PM INFORMATICS NURSE Lucy Luna MD MICROBIOLOGY - GENERAL ORDERABLE S Final Result Performing Organization Address [facility]/ZIP Co de Phone Number [facility] [address] [place] [address], [place] [phone] * (ABNORMAL) CORONAVIRUS (COVID-19) INFLUENZA A & B ANTIGEN IA PANEL (11/14/2024) CORONAVIRUS ANTIGEN IA NEGATIVE NEGATIVE [id number], [place] INFLUENZA A NEGATIVE NEGATIVE [id number], [place] INFLUENZA B POSITIVE(A) NEGATIVE [id number], [place] Internal Control: VALID VALID [address], [place] NASAL STRUCTURE / Unknown 11/14/2024 us Lucy Luna MD MICROBIOLOGY - GENERAL ORDERABLE S Final Result [id number], [place] [address] [place] [address], * STREP A RAPID (11/14/2024) [facility] RAPID STREP TEST NEGATIVE NEGATIVE [id number], [place] Internal Control: VALID VALID MG[address], [place] STRUCTURE OF ANTERIOR PORTION OF NECK / Unknown 11/14/2024 us Lucy Luna MD MICROBIOLOGY - GENERAL ORDERABLE S Final Result Performing Organization Address City/[facility]/ZIP Co de Phone Number [id number], [place] [address] [place] [address], * PSG with CPAP/BIPAP ([id number]) (11/13/2024 8:00 PM INFORMATICS NURSE) Narrative [facility] - 11/13/2024 8:00 PM INFORMATICS NURSE Rony Espinoza MD 11/24/2024 1:25 PM [place], [place] CPAP/BILEVEL TITRATION STUDY INTERPRETATION PATIENT NAME: Lisa Moreno DATE OF : 1965 DATE OF SERVICE: 11/13/2024 PATIENT TYPE: CLI Ordering Phy Exam Description Osiel Telles M.D. SL PSG 4+PARAMETERS W/CPAP ATTENDING PHYSICIAN: Rony Espinoza M.D. REFERRING PHYSICIAN: Osiel Telles M.D. GENERAL INFORMATION Total Sleep Time: 346.5 minutes Sleep Efficiency Index: 76.0% Sleep Latency: 33.9 minutes REM Latency: 81.5 minutes Post Respiratory Disturbance Index: 2.7 per hour on CPAP of 10 cm h2O Post Apnea-Hypopnea Index: 1.6 per hour on CPAP of 10 cm h2O Procedure: The overnight polysomnogram was an attended study using a multiple channel system including simultaneous monitoring and recording of electroencephalography (EEG), right and left electrooculography (EOC), submental electromyography (EOG), submental electromyography (EMG), EKG, oral/nasal airflow, snoring, respiratory effort, oxygen saturations, right and left anterior tibialis electromyography, and body position. Sleep Architecture: The patient underwent CPAP titration and slept for a total of 346.5 minutes during 455.6 minutes of recording time. Latency to persistent sleep was 33.9 minutes with sleep efficiency of 76.0% and a REM latency of 81.5 minutes. Patient spent 8.7% (30.0 minutes) in stage N1, 47.3% (164.0 minutes) in stage N2, 23.5% (81.5 minutes) in Stage N3, 20.5% (71.0 minutes) in REM. The patient slept 65.1% of the time in supine position, 0.0% of the time in prone position, 0.0% of the time in left-sided position, and 34.9% of the time in right-sided position. There were 56 arousals, of which 21 were associated with respiratory events and 35 were spontaneous. Arousal index was 9.7 per hour. Limb Activity Summary: The patient demonstrated a total of - leg movements during the night, of which - had the appearance of periodic limb movements. There were a total of - arousals associated with leg movements for an arousal index with leg movements of - per hour. The periodic limb movement index was - per hour. Cardiac Events Summary: The average heart rate was 66.4 beats per minute. No cardiac events were noted during this study. Respiratory Events Summary: There were a total of 8 apneas and hypopneas, of which 1 were apneas. Of those apneas, - were Obstructive, 1 were Central and - were Mixed. There were an additional 19 respiratory event-related arousals. Oxygen Saturation Summary: Patient's average saturation was 89.7% during REM and 90.7% during NREM. The patient's lowest saturation was 84.0% during REM and 87.0% during NREM. Saturation was 90% or higher for 44.3% of the total sleep time. Saturation was less than 88% for 6.3% of the total sleep time or 22.8 minutes. CPAP/BiLevel Therapy Summary: The patient underwent CPAP titration starting at 4 cm H2O, up to a maximum of 10 cm H2O. The patient slept for 111.5 minutes while on the optimal pressure of 10 cm H2O with an AHI of 1.6 per hour, arousal index of 8.6 per hour and minimum oxygen saturation of 84.0%. Assessment/Plan: This patient was fully titrated during this study. It is recommended that this patient initiate CPAP therapy at home set at 10.0 cm h2O with heated humidity. A one month follow up should be scheduled with the ordering physician to assess the benefit and tolerance of this therapy. If respiratory events persist, further evaluation and possible pressure adjustment may be warranted as clinically indicated. The patient used a ResMed AirFit F30i, size medium cushion, during this study. This patient's oxygen saturation was at or below 88.0% for 22.8 minutes during this study. Possible need to do additional testing with full night titration with possible supplemental oxygen addition if there are still significant desaturations when patient's AHI is within normal limits should be considered. Also, the possibility of additional medical evaluation based on noted desaturations should be considered. This patient should maintain good sleep hygiene techniques, maintain a consistent sleep/wake schedule with adequate hours of sleep, and avoid hazardous activities when sleepy. The patient should be cautioned about factors that may potentially exacerbate snoring and sleep-related problems, such as TOOL ENGINE LATHE SET UP OPERATOR depressants, especially at bedtime. This document was electronically signed by: Rony Espinoza M.D. on 11/20/2024 at 9:50 AM. Osiel Telles MD SLEEP CENTER ORDERABLES Final Result [facility] [address] [place] [address], [place] [phone] * SLEEP STUDY GENERIC (SCAN ORDER) (09/30/2024) 09/30/2024 us [facility] Scanned SCANNING Final Resu lt * COLONOSCOPY GENERIC (SCAN ORDER) (09/22/2024) 09/22/2024 us [facility] Scanned SCANNING Final Resu lt * HEPATITIS C ANTIBODY (05/09/2024 11:54 AM CDT) HEPATITIS C AB NON-REACTI VE NON-REACT SAI 05/09/2024 9:54 PM CDT [facility] Comment: ANTIBODIES TO HCV NOT DETECTED. DOES NOT EXCLUDE THE POSSIBILITY OF EXPOSURE TO HCV. 05/09/2024 11:5 4 AM CDT Lucy Luna MD LABORATORY Final Result [facility] [address] [place] [address], [place] [phone] [id number] from Last 3 Months or Most Recently Relevant to Health Maintenance Insurance [facility] Care Teams Newspaper Columnist Relationship Specialty Start Date End Date Lucy Luna MD [address] [facility] [address] [place] [id number] PCP - General 05/08/24
== END 2024-12-11 08:15 | disposition home or self-care (01) ==
PROVIDERS: PCP Internal Medicine; Visit Provider Nurse Practitioner
DX: R14.0 Abdominal distension (gaseous) (principal); R68.81 Early satiety; Z98.84 Bariatric surgery status
CPT/HCPCS: 74246; 74248

== ENCOUNTER 2025-06-22 15:06 | Outpatient (CLI) | payer OTHER, SELFPAY ==
--- NOTE | ~2025-06-22 | XR_ITS ---
EXAMINATION: XR knee RT 3V, 06/22/2025 15:11 CDT HISTORY: Acute pain of right knee COMPARISON: No comparisons available. Findings: No acute fracture or malalignment. Moderate to severe tricompartmental degenerative changes Soft tissues unremarkable. Impression: No acute fracture or malalignment. Reviewed, dictated and finalized at location P. Impression: No acute fracture or malalignment.
== END 2025-06-22 15:07 | disposition home or self-care (01) ==
LOC: MICIMG 15:08
PROVIDERS: PCP Physician Assistant Surgical; Visit Provider Internal Medicine
DX: M25.561 Pain in right knee (principal)
CPT/HCPCS: 73562

== ENCOUNTER 2025-07-23 10:38 | Outpatient (CLI) | payer OTHER, SELFPAY ==
--- NOTE | ~2025-07-23 | CT_ITS ---
PROCEDURE: [Procedure] INDICATION: 11 days LLQ abdominal pain COMPARISON(S): None. TECHNIQUE: Multiplanar images of the abdomen and pelvis were obtained with intravenous contrast solution.. Diagnostic sensitivity is limited due to lack of oral contrast. Dose lowering technique and dose optimization was utilized. FINDINGS: There is a lap band in place. There is a peritoneal dialysis catheter entering from the anterior abdominal wall of the left lower quadrant. Inferior thorax: No significant abnormality is seen. Liver: Minimally fatty infiltrated. Gallbladder: The gallbladder is present. There are no radiopaque gallstones. Pancreas: Within normal limits. Spleen: Normal in size and appearance. Adrenal glands: There are no masses seen. Kidneys: There is no hydronephrosis seen on either side. No urinary tract stones are seen. There are no suspicious masses seen. GI tract: There is no evidence of bowel obstruction. There is significant diverticulosis of the sigmoid, With scattered colonic diverticula seen elsewhere. No definite inflammatory changes seen about the colon. Major vessels: The major vessels are normal in caliber. Sex specific pelvic organs: No significant abnormality is seen. Bladder: The bladder appears normal. Bones: Degenerative change is present. There are some minimal wedging deformities in some of the vertebral bodies. There is grade 1 spondylolisthesis of L4 on L5. IMPRESSION: No acute abnormality is seen. Reviewed, dictated and finalized at location A. SURE DISPATCHER
[2025-07-23 11:03] LABS: Hematocrit 44.9 % (37.0-47.0); Hemoglobin 14.3 g/dL (12.0-15.0); Mean Corpuscular HGB Conc 31.8 g/dl (32-36); Mean Corpuscular Hemoglobin 27.8 pg (26-34); Mean Corpuscular Volume 87.4 fl (80-100); Platelet Count Result 296 k/mm3 (150-375); Red Blood Count 5.14 M/mm3 (4.2-5.4); White Blood Count 8.0 K/mm3 (4.5-10.0)
--- OUTSIDE RECORDS SUMMARY | 2025-07-23 11:34 | XMS_ITS | Clinical Summary ---
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 Gender Identity Not on file Sexual Orientation [...] 6:45 PM CDT Height 165.1 cm (5' 5) 03/06/2023 6:45 PM CDT Body Mass Index 39.77 03/06/2023 6:45 PM CDT Plan of Treatment Health Maintenance Due Date Last Done Comments Hepatitis C Virus (HCV) Screening 1965 Hepatitis B Immunization (1 of 3 - 19+ 3-dose series) 1985 Cologuard 2011 Immunochemical Fecal Occult Blood 2011 Pneumococcal Immunization (50+ years) (1 of 1 - PCV) 01/25/2016 Zoster Immunization (1 of 2) 01/25/2016 Influenza Immunization (#1) 05/11/202506/10, 06/21/2021, 06/06/2020, Additional history exists SARS-COV-2 Immunization (2024- season) 2025 07/06/2021, 11/08/2020, 10/18/2020 Colonoscopy 09/26/2027 09/26/2017 Colorectal Cancer Screening 09/26/2027 Td Immunization Every 10 Years (Adults With 1 Tdap) 12/17/2030 12/17/2020, 11/03/2010 Respiratory Syncytial Virus (RSV) Immunization (Adult) (1 - 1-dose 75+ series) 2041 DTaP/Tdap/Td Immunization Discontinued 12/17/2020, Mammogram Discontinued 07/28/2022, 04/11, 04/27/2020, Additional history exists Human Papillomavirus (HPV) Immunization Aged Out No longer eligible based on patient's age to complete this topic Meningococcal Immunization (ACWY) Aged Out No longer eligible based on patient's age to complete this topic Rotavirus Immunization Aged Out No lo nger eligible based on patient's age to complete this topic Insurance [facility] Care Teams Machine Rough Rounder Relationship Specialty Start Date End Date Dominique Avila MD [address] [place] [address] PCP - General Internal Medicine 09/11/19
--- OUTSIDE RECORDS SUMMARY | 2025-07-23 11:34 | XMS_ITS | Clinical Summary ---
Author Organization [facility] Address [address] [place] [address] Care Team Providers Care Soda Tester Name Role Phone Lucy Luna MD Primary Care Provider [phone] Allergies Active Allergy Reactions Criticality Noted Date Comments Adhesive Itching Low 08/04/2017 Azithromycin Hives Medium 09/11/2019 Benzoin Rash Medium 05/21/2018 Benzoin Compound Rash Medium 05/21/2018 Celecoxib Hives Medium 11/19/2008 HIVES Cephalexin Hives Medium 02/27/2025 Diltiazem Headache Low 05/27/2024 Erythromycin Hives Medium 12/27/2020 Levofloxacin Other (See comments),Joint pain Low 05/08/2019 Joint pain Orphenadrine Hives Medium 09/11/2019 Prednisone Other (See comments) Low 05/21/2018 Hypertension Blood pressure elevation Silver Rash Medium 04/15/2012 Sulfa Hives Medium 12/27/2020 Sulfamethoxazole-Trimet hoprim Hives Medium 05/21/2018 Vancomycin Hcl Stomach upset,Other (See comments) Low 05/21/2018 Rectal bleeding Medications irbesartan (AVAPRO) 300 mg tablet 5 Active amLODIPine (NORVASC) 10 mg tablet 5 Active tirzepatide, weight loss, (Zepbound) 2.5 mg/0.5 mL pen injector Indications: Weight Loss Inject 2.5mg subcutaneous once weekly x 4 weeks then increase to 5mg weekly 5 Active omeprazole (PriLOSEC) 40 mg capsule Take 1 capsule (40 mg total) by mouth daily 5 Active L. acidophilus/Bif id. animalis 33 billion cell capsule Take 1 capsule by mouth daily Active HYDROcodone-augustin taminophen (NORCO) 5-325 mg per tablet Take 1 tablet by mouth 5 Active escitalopram (LEXAPRO) 10 mg tablet Take 1 tablet (10 mg total) by mouth 4 Active ergocalciferol (VITAMIN D) 50,000 unit capsule Take 1 capsule (50,000 Units total) by mouth every 7 days Active dicyclomine (BENTYL) 20 mg tablet Take 1 tablet (20 mg total) by mouth every 6 (six) hours 4 Active mecobalamin (B12 ACTIVE ORAL) Take by mouth Active Active Problems No known active problems Encounters Date Type Department Care Team Description 05/27/2025 9:58 AM CDT - 05/27/2025 11:59 PM CDT Hospital Encounter [facility] [address] [place], [place] [id number] Abnormality of left breast on screening mammogram Discharge Disposition: Discharge to home or self care from Last 3 Months Surgical History Surgery [...] Sign Reading Time Taken Comments Blood Pressure 132/72 02/24/2025 11:31 AM CDT Pulse 75 02/24/2025 11:31 AM CDT Temperature 36.3 C (97.4 F) 02/24/2025 11:31 AM CDT Respiratory Rate 20 02/24/2025 11:31 AM CDT Oxygen Saturation 95% 02/24/2025 11:31 AM CDT Inhaled Oxygen Concentration - - Weight 113.4 kg (250 lb) 05/27/2025 10:06 AM CDT Height 165.1 cm (5' 5) 05/27/2025 10:06 AM CDT Body Mass Index 41.6 05/27/2025 10:06 AM CDT Plan of Treatment Health Maintenance Due Date Last Done Comments Colon Cancer Screening-Colonoscopy 1965 Depression Screening 1965 Hepatitis C Screening 1965 Hepatitis B Screening 01/25/1984 Regular Well Visit/Exam 18-64 01/25/1984 Pneumococcal vaccine <65 (1 of 2 - PCV) 1985 Zoster Vaccine (1 of 2) 01/25/2016 Covid-19 Vaccine (4 - 2024-2 6 season) 2025 07/06/2021, 11/08/2020, 10/18/2020 Influenza Vaccine (#1) 2025 2, 06/21/2021, 06/06/2020, Additional history exists Breast Cancer Screening-Mammogram 11/20/2025 11/20/2024, 09/17/2023, 09/17/2023, Additional history exists DTaP/Tdap/Td Vaccine (3 - Td or Tdap) 12/17/2030 12/17/2020, 11/03/2010 Procedures Procedure Name Priority Date/Time Associated Diagnosis Comments DIAGNOSTIC MAMMOGRAM LEFT W BUBBA Schedule Routine, Read Routine (OP Routine) 05/27/2025 10:11 AM CDT Abnormality of left breast on screening mammogram SCREENING MAMMOGRAM BILATERAL W BUBBA Schedule Routine, Read Routine (OP Routine) 11/20/2024 12:36 PM CDT Encounter for screening mammogram for malignant neoplasm of breast from Last 3 Months or Most Recently Relevant to Health Maintenance Results * Diagnostic Mammogram Left W Bubba (05/27/2025 10:11 AM CDT) Anatomical Region Laterality Modality Breast Left Mammography 05/27/2025 3:24 PM CDT Impressions 05/27/2025 3:24 PM CDT No imaging findings to suggest malignancy are seen. The patient may return to screening mammography as per ACR guidelines. OVERALL FINAL ASSESSMENT: BI-RADS 2 - Benign findings. Electronically signed by: Vania Ryan M.D. Narrative 05/27/2025 3:24 PM CDT EXAMINATION: DIGITAL DIAGNOSTIC LEFT MAMMOGRAM INCLUDING CAD AND DIGITAL BREAST TOMOSYNTHESIS HISTORY: Follow-up biopsy. It has been 6 months since the patient's screening study. COMPARISON: February,, and November,. TECHNIQUE: Digital mammographic views of the left breast(s) were performed, including digital breast tomosynthesis (DBT). Computer aided detection (CAD) was utilized. BREAST PARENCHYMAL COMPOSITION: There is scattered fibroglandular tissue. MAMMOGRAM FINDINGS: There has been decrease in the calcifications in the area of previous biopsy. The biopsy marker is present adjacent to the calcifications. No suspicious masses are seen. No new or suspicious calcifications are seen. There is no unexplained architectural distortion. There is no skin thickening. No axillary adenopathy is seen mammographically. us Bernard Solano MD IMG MAMMO PROCEDURES Final Res ult * (ABNORMAL) Screening Mammogram Bilateral W Bubba [...] PROCEDURES Final Result from Last 3 Months or Most Recently Relevant to Health Maintenance Insurance [facility] OPEN ACCESS [facility] Care Teams Soda Tester Relationship Specialty Start Date End Date Lucy Luna MD [address] [place] [address] PCP - General Internal Medicine 09/30/24
[2025-07-23 11:38] LABS: Alanine Aminotransferase 24 U/L (6-35); Albumin Level 4.4 g/dL (3.5-5.1); Alkaline Phosphatase 77 U/L (38-126); Anion Gap 7 mmol/L (4-12); Aspartate Amino Transferase 33 U/L (14-36); Bilirubin,Total 0.7 mg/dL (0.2-1.3); Blood Urea Nitrogen 12 mg/dL (7-17); Calcium 8.7 mg/dL (8.4-10.2); Carbon Dioxide 26 mmol/L (22-30); Chloride 106 mmol/L (98-107); Estimated Glomerular Filt Rate > 60; Glucose 109 mg/dL (65-110); Potassium 4.0 mmol/L (3.4-5.0); Sodium 139 mmol/L (137-145); Total Protein 8.4 g/dL (6.3-8.2)
[2025-07-23 11:47] LABS: CRP 0.5 mg/dL (<1.0)
== END 2025-07-23 10:39 | disposition home or self-care (01) ==
PROVIDERS: PCP Internal Medicine; Visit Provider Nurse Practitioner
DX: R10.32 Left lower quadrant pain (principal); K59.00 Constipation, unspecified
CPT/HCPCS: 36415; 74177; 80053; 85027; 86140; Q9967

== ENCOUNTER 2025-09-06 18:55 | Emergency (ER) | payer OTHER, SELFPAY ==
--- NOTE | ~2025-09-06 | CT_ITS ---
EXAMINATION: CT abdomen pelvis w con DATE: 09/06/2025 22:44 INDICATION: Left lower quadrant pain. History of multiple prior surgeries. TECHNIQUE: Computed tomography (CT) of the abdomen and pelvis was performed with intravenous contrast. The dose-length product was 1434.30 mGy-cm. Automated exposure control and iterative reconstruction technique were employed. COMPARISON: CT dated 07/23/2025. FINDINGS: Heart size normal. There is a laparoscopic adjustable gastric band. There is acute sigmoid diverticulitis with moderate phlegmonous change, without evidence for perforation or abscess. Fatty infiltration of the liver. Status post cholecystectomy. The spleen, pancreas, adrenal glands and left kidney are unremarkable. Small subcentimeter hypodensity of the right kidney, most likely benign. Normal appendix. Severe lower thoracic and lumbar spondylosis with grade 1 degenerative spondylolisthesis at L4-5. IMPRESSION: 1. Acute uncomplicated sigmoid diverticulitis. Reviewed, dictated and finalized at location O. RETTE PACKAGE EXAMINER
[2025-09-06 18:57] VITALS: PULSE 98; RESP 16; TEMP 37.4; O2SAT 98
--- OUTSIDE RECORDS SUMMARY | 2025-09-06 18:57 | XMS_ITS | Clinical Summary ---
Author Organization [facility] Address [address] [place] [address] Care Team Providers Care Stoner Hand Name Role Phone Lucy Luna MD Primary Care Provider [phone] Allergies Active Allergy Reactions Criticality Noted Date [...] (B12 ACTIVE ORAL) Take by mouth Active Airsupra 90-80 mcg/actuation HFA aerosol inhaler Inhale 2 puffs as needed 5 Active colestipoL (COLESTID) 1 gram tablet Take 1 tablet (1 g total) by mouth 5 Active rimegepant (NURTEC ODT) tablet,disinteg rating Take 1 tablet (75 mg total) by mouth daily as needed 5 Active rizatriptan-nita oxicam (Symbravo) 10-20 mg tablet Take 1 tablet by mouth daily as needed 5 Active Wegovy 1 mg/0.5 mL auto-injector 5 Active zinc sulfate (Orazinc) 25 mg zinc (110 mg) tablet Take 25 mg by mouth daily 5 Active fluconazole (DIFLUCAN) 150 mg tabletIndicatio ns:Strep pharyngitis Take 1 tablet (150 mg total) by mouth every 7 days Take one tab now. Repeat in 7 days if symptoms persist. 2 tablet 5 Active amoxicillin-cla vulanate (AUGMENTIN) 875-125 mg per tabletIndicatio ns:Strep pharyngitis,Non -recurrent acute suppurative otitis media of left ear without spontaneous rupture of tympanic membrane,Acute non-recurrent frontal sinusitis Take 1 tablet by mouth 2 (two) times a day for 7 days 14 tablet 5 025 Hospital, Clinic, or Other Facility Administered Medication Ordered Dose Route Frequency Start Date End Date Status methylPREDNISolone sodium succinate (SOLU-medrol) preservative free injection 60 mgIndications:Anti-inflamma tory 60 mg IM Once 08/29/2025 08/29/2025 Ended Active Problems No known active problems Encounters Date Type Department Care Team Description 08/29/2025 5:15 PM HEAT TREATER HEAD Office Visit [facility] [address] [place] [address] Chasidy Melgar, GRACIA Strep pharyngitis (Primary Dx); Non-recurrent acute suppurative otitis media of left ear without spontaneous rupture of tympanic membrane; Acute non-recurrent frontal sinusitis from Last 3 Months Surgical History Surgery [...] Sign Reading Time Taken Comments Blood Pressure 132/80 08/29/2025 5:03 PM HEAT TREATER HEAD Pulse 88 08/29/2025 5:03 PM HEAT TREATER HEAD Temperature 36.3 C (97.4 F) 08/29/2025 5:03 PM HEAT TREATER HEAD Respiratory Rate 18 08/29/2025 5:03 PM HEAT TREATER HEAD Oxygen Saturation 97% 08/29/2025 5:03 PM HEAT TREATER HEAD Inhaled Oxygen Concentration - - Weight 120.7 kg (266 lb) 08/29/2025 5:03 PM HEAT TREATER HEAD Height 165.1 cm (5' 5) 08/29/2025 5:03 PM HEAT TREATER HEAD Body Mass Index 44.26 08/29/2025 5:03 PM HEAT TREATER HEAD Plan of Treatment Health Maintenance Due Date [...] Procedure Name Priority Date/Time Associated Diagnosis Comments POCT RAPID STREP Routine 08/29/2025 5:22 PM HEAT TREATER HEAD Strep pharyngitis SCREENING MAMMOGRAM BILATERAL W BUBBA Schedule Routine, Read Routine (OP Routine) 11/20/2024 12:36 PM CDT Encounter for screening mammogram for malignant neoplasm of breast from Last 3 Months or Most Recently Relevant to Health Maintenance Results * (ABNORMAL) POCT rapid strep A (08/29/2025 5:22 PM HEAT TREATER HEAD) Rapid Strep A, POC Positive(A ) Negative Swab 08/29/2025 5:22 PM HEAT TREATER HEAD Chasidy Melgar NP POINT OF CARE TEST ORDERABLES Final Result * (ABNORMAL) Screening Mammogram Bilateral W Bubba [...] Most Recently Relevant to Health Maintenance Insurance [facility] Care Teams Stoner Hand Relationship Specialty Start Date End Date Lucy Luna MD [address] [place] [address] PCP - General Internal Medicine 09/30/24
--- OUTSIDE RECORDS SUMMARY | 2025-09-06 18:57 | XMS_ITS | Encounter Summary ---
Author Organization [facility] Address [address] [place] [address] Care Team Providers Care Taxi Proprietor Name Role Phone Lucy Luna MD Primary Care Provider [phone] Encounter Details Date Type Department Care Team (Late st Contact Info) Description 07/04/2024 MyCoopt Message Enc [facility] Orthopedic & Sports Medicine - [place] [address] [place], [place] [id number] [phone] Gwyn Scott MD [address] [place], [place] [phone] Allergic reaction Social History Tobacco Use Types [...] Sex Assigned at Female 09/23/2024 8:49 AM ACID CHANGER Legal Sex Female 11:30 PM ACID CHANGER Gender Identity Female 11/14/2024 10:46 AM ACID CHANGER Sexual Orientation Straight 11/14/2024 10 :46 AM ACID CHANGER documented as of this encounter Plan of Treatment Upcoming Encounters Date Type Department Care Team (Late st Contact Info) Description 10/05/2025 1:30 PM ACID CHANGER Appointment [facility] [address] [place] [address] Edison Torres MD 3 [facility] [place] [address] 10/05/2025 2:15 PM ACID CHANGER Appointment [facility] [address] [place] [address] Edison Torres MD 3 [place] [address] 10/07/2025 12:00 PM ACID CHANGER Appointment [facility] [address] [place] [address] Edison Torres MD 3 [place] [address] 10/12/2025 9:45 AM ACID CHANGER Appointment [facility] [address] [place] [address] Edison Torres MD 3 [place] [address] 10/12/2025 10:30 AM ACID CHANGER Appointment [facility] [address] [place] [address] Edisno Torres MD 3 [place] [address] 01/26/2026 11:00 AM CDT Office Visit [facility] Multispecialty Care - [place] [address] [facility] [place] [address] Edison Torres MD 3 [place] [address] documented as of this encounter Visit Diagnoses Not on filedocumented in this encounter Additional Health Concerns Infection Onset Date Last Indicated Resolved Time Respiratory Rule Out 11/14/2024 11/14/2024 025 4:36 PM ACID CHANGER Influenza - Seasonal 11/14/2024 11/14/2024 025 12:32 AM CDT Assessment Noted Time PHQ-9 Depression Total Score: 5 05/09/20 24 12:10 PM CDT documented as of this encounter Care Teams Taxi Proprietor Relationship Specialty Start Date End Date Lucy Luna MD [address] [facility] [address] [place] [address] PCP - General 05/08/24 documented as of this encounter
--- OUTSIDE RECORDS SUMMARY | 2025-09-06 18:57 | XMS_ITS | Encounter Summary ---
Author Organization [facility] Address [address] [place] [address] Care Team Providers Care Coremaking Supervisor Name Role Phone Lucy Luna MD Primary Care Provider [phone] Encounter Details Date Type Department Care Team (Latest Contact Info) Description 10/31/2024 Amicus Therapeuticst Message Enc [facility] Multispecialty Care - [place] [address] [address] [place], [place] [phone] [place] [address] [place] [address] 157 [place] [address] Compound tirzepitide Social History Tobacco Use Types [...] Sex Assigned at Female 09/23/2024 8:49 AM CLOTH DESIZING RANGE TENDER Legal Sex Female 11:30 PM CLOTH DESIZING RANGE TENDER Gender Identity Female 11/14/2024 10:46 AM CLOTH DESIZING RANGE TENDER Sexual Orientation Straight 11/14/2024 10 :46 AM CLOTH DESIZING RANGE TENDER documented as of this encounter Plan of Treatment Upcoming Encounters Date Type Department Care Team (Late st Contact Info) Description 10/05/2025 1:30 PM CLOTH DESIZING RANGE TENDER [facility] [address] [place] [address] Edison Torres MD 3 [place] [address] 10/05/2025 2:15 PM CLOTH DESIZING RANGE TENDER Appointment [facility] [address] [place] [address] Edison Torres MD 3 [place] [address] 10/07/2025 12:00 PM CLOTH DESIZING RANGE TENDER Appointment [facility] [address] [place] [address] Edison Torres MD 3 [place] [address] 10/12/2025 9:45 AM CLOTH DESIZING RANGE TENDER Appointment [facility] MRI [address] [place] [address] Edison Torres MD 3 [place] [address] 10/12/2025 10:30 AM CLOTH DESIZING RANGE TENDER Appointment [facility] MRI [address] [place] [address] Edison Torres MD 3 [place] [address] 01/26/2026 11:00 AM CDT Office Visit [facility] Multispecialty Care - [place] [address] [place] [address] Edison Torres MD 3 [place] [address] documented as of this encounter Visit Diagnoses Not on filedocumented in this encounter Additional Health Concerns Infection Onset Date Last Indicated Resolved Time Respiratory Rule Out 11/14/2024 11/14/2024 025 4:36 PM CLOTH DESIZING RANGE TENDER Influenza - Seasonal 11/14/2024 11/14/2024 025 12:32 AM CDT Assessment Noted Time PHQ-9 Depression Total Score: 5 05/09/20 24 12:10 PM CDT documented as of this encounter Care Teams Coremaking Supervisor Relationship Specialty Start Date End Date Lucy Luna MD [address] [facility] [address] [place] [address] PCP - General 05/08/24 documented as of this encounter
--- OUTSIDE RECORDS SUMMARY | 2025-09-06 18:57 | XMS_ITS | Encounter Summary ---
Author Organization [facility] Address [address] [place] [address] Care Team Providers Care Edger Machine Operator Name Role Phone Lucy Luna MD Primary Care Provider [phone] Encounter Details Date Type Department Care Team (Late Contact Info) Description 07/16/2024 MyChart Message Enc [facility] Orthopedic & Sports Medicine - [place] [address] [place], [place] [phone] Gwyn Scott MD [address] [place], [place] [phone] Appt Jul. Social History Tobacco Use Types Packs/Day Years [...] Sex Assigned at Female 09/23/2024 8:49 AM UPLANDS DIVISION DIRECTOR Legal Sex Female 11:30 PM UPLANDS DIVISION DIRECTOR Gender Identity Female 11/14/2024 10:46 AM UPLANDS DIVISION DIRECTOR Sexual Orientation Straight 11/14/2024 10 :46 AM UPLANDS DIVISION DIRECTOR documented as of this encounter Plan of Treatment Upcoming Encounters Date Type Department Care Team (Late st Contact Info) Description 10/05/2025 1:30 PM UPLANDS DIVISION DIRECTOR [facility]ment [facility] [address] [place], [place] [id number] Edison Torres MD 3 [place] [address] 10/05/2025 2:15 PM UPLANDS DIVISION DIRECTOR Appointment [facility] [place] MRI [address] [place] [address] Edison Torres MD 3 [place] [address] 10/07/2025 12:00 PM UPLANDS DIVISION DIRECTOR Appointment [facility] [address] [place] [address] Edison Torres MD 3 [place] [address] 10/12/2025 9:45 AM UPLANDS DIVISION DIRECTOR Appointment [facility] MRI [address] [place] [address] Edison Torres MD 3 [place] [address] 10/12/2025 10:30 AM UPLANDS DIVISION DIRECTOR Appointment [facility] [address] [place] [address] Edison Torres MD 3 [place] [address] 01/26/2026 11:00 AM CDT Office Visit [facility] Multispecialty Care - [place] [address] [place] [address] Edison Torres MD 3 [place] [address] documented as of this encounter Visit Diagnoses Not on filedocumented in this encounter Additional Health Concerns Infection Onset Date Last Indicated Resolved Time Respiratory Rule Out 11/14/2024 11/14/2024 025 4:36 PM UPLANDS DIVISION DIRECTOR Influenza - Seasonal 11/14/2024 11/14/2024 025 12:32 AM CDT Assessment Noted Time PHQ-9 Depression Total Score: 5 05/09/20 24 12:10 PM CDT documented as of this encounter Care Teams Edger Machine Operator Relationship Specialty Start Date End Date Lucy Luna MD [address] [facility] [address] [place] [address] PCP - General 05/08/24 documented as of this encounter
--- OUTSIDE RECORDS SUMMARY | 2025-09-06 18:57 | XMS_ITS | Encounter Summary ---
Author Organization [facility] Address [address] [place] [address] Care Team Providers Care Admeasurer Name Role Phone Lucy Luna MD Primary Care Provider [phone] Encounter Details Date Type Department Care Team (Late st Contact Info) Description 06/11/2025 MyChart Message Enc [facility] Multispecialty Care - [place] [address] [address] [place] [address] Lucy Luna MD [address] [place] [address] 157 [place] [address] BP Social History Tobacco Use Types Packs/Day Years Used Date Smoking Tobacco: Never Passive Smoke Exposure: Never Smokeless Tobacco: Never Comments:Counseled by Dr. Raquel león. Alcohol Use Standard Drinks/Week Comments Not Currently 0 (1 standard drink = 0.6 oz pur e alcohol) PHQ-2 Answer Date Recorded Patient Health Questionnaire-2 Score 0 06/05/2025 Comments No Sex and Gender Information Value Date Recorded Sex Assigned at Female 09/23/2024 8:49 AM INTERNATIONAL EXCHANGE COORDINATOR Legal Sex Female 11:30 PM INTERNATIONAL EXCHANGE COORDINATOR Gender Identity Female 11/14/2024 10:46 AM INTERNATIONAL EXCHANGE COORDINATOR Sexual Orientation Straight 11/14/2024 10 :46 AM INTERNATIONAL EXCHANGE COORDINATOR documented as of this encounter Plan of Treatment Upcoming Encounters Date Type Department Care Team (Late st Contact Info) Description 10/05/2025 1:30 PM INTERNATIONAL EXCHANGE COORDINATOR [facility]ment [facility] [address] [place] [address] Edison Torres MD 3 [facility] [place] [address] 10/05/2025 2:15 PM INTERNATIONAL EXCHANGE COORDINATOR Appointment [facility] [address] [place] [address] Edison Torres MD 3 [place] [address] 10/07/2025 12:00 PM INTERNATIONAL EXCHANGE COORDINATOR Appointment [facility] [address] [place] [address] Edison Torres MD 3 [place] [address] 10/12/2025 9:45 AM INTERNATIONAL EXCHANGE COORDINATOR Appointment [facility] [address] [place] [address] Edison Torres MD 3 [place] [address] 10/12/2025 10:30 AM INTERNATIONAL EXCHANGE COORDINATOR Appointment [facility] [address] [place] [address] Edison Torres MD 3 [place] [address] 01/26/2026 11:00 AM CDT Office Visit [facility] Multispecialty Care - [place] [address] [facility] [place] [address] Edison Torres MD 3 [place] [address] documented as of this encounter Visit Diagnoses Not on filedocumented in this encounter Additional Health Concerns Assessment Noted Time PHQ-9 Depression Total Score: 3 06/05/20 25 2:04 PM CDT documented as of this encounter Care Teams Admeasurer Relationship Specialty Start Date End Date Lucy Luna MD [address] [address] PCP - General 05/08/24 documented as of this encounter
--- OUTSIDE RECORDS SUMMARY | 2025-09-06 18:57 | XMS_ITS | Encounter Summary ---
Author Organization [facility] Address [address] [place] [address] Care Team Providers Care Timber Faller Name Role Phone Lucy Luna MD Primary Care Provider [phone] Encounter Details Date Type Department Care Team (Latest Contact Info) Description 05/27/2024 Loop Commercehart Message Enc [facility] Group Multispecialty Care - [place] [address] [address] [place], [place] [phone] [place] [address] [place] [address] 157 [place] [address] Hypertension medications Social History Tobacco Use Types [...] Sex Assigned at Female 09/23/2024 8:49 AM OFFAL ROLLER Legal Sex Female 11:30 PM OFFAL ROLLER Gender Identity Female 11/14/2024 10:46 AM OFFAL ROLLER Sexual Orientation Straight 11/14/2024 10 :46 AM OFFAL ROLLER documented as of this encounter Plan of Treatment Upcoming Encounters Date Type Department Care Team (Late st Contact Info) Description 10/05/2025 1:30 PM OFFAL ROLLER Appointment [facility] [address] [place] [address] Edison Torres MD 3 [facility] [place] [address] 10/05/2025 2:15 PM OFFAL ROLLER Appointment [facility] [address] [place] [address] Edison Torres MD 3 [place] [address] 10/07/2025 12:00 PM OFFAL ROLLER Appointment [facility] [address] [place] [address] Edison Torres MD 3 [place] [address] 10/12/2025 9:45 AM OFFAL ROLLER Appointment [facility] MRI [address] [place] [address] Edison Torres MD 3 [place] [address] 10/12/2025 10:30 AM OFFAL ROLLER Appointment [facility] MRI [address] [place] [address] Edison Torres MD 3 [place] [address] 01/26/2026 11:00 AM CDT Office Visit [facility] Group Multispecialty Care - [place] [address] [facility] [place] [address] Edison Torres MD 3 [place] [address] documented as of this encounter Visit Diagnoses Not on filedocumented in this encounter Additional Health Concerns Infection Onset Date Last Indicated Resolved Time Respiratory Rule Out 11/14/2024 11/14/2024 025 4:36 PM OFFAL ROLLER Influenza - Seasonal 11/14/2024 11/14/2024 025 12:32 AM CDT Assessment Noted Time PHQ-9 Depression Total Score: 5 05/09/20 24 12:10 PM CDT documented as of this encounter Care Teams Timber Faller Relationship Specialty Start Date End Date Lucy Luna MD [address] [facility] [address] [place] [address] PCP - General 05/08/24 documented as of this encounter
--- OUTSIDE RECORDS SUMMARY | 2025-09-06 18:57 | XMS_ITS | Encounter Summary ---
Author Organization [facility] Address [address] [place] [address] Care Team Providers Care Data Control Clerk Name Role Phone Lucy Luna MD Primary Care Provider [phone] Encounter Details Date Type Department Care Team (Late st Contact Info) Description 06/24/2024 Salient Surgical Technologiest Message Enc [facility] Medical Group Orthopedic & Sports Medicine - [place] [address] [place], [place] [phone] Rajiv Patrick, AUTOMATIC ENGRAVER [address] [facility] [place], [place] [id number] Surgery sunday Social History Tobacco Use Types [...] Sex Assigned at Female 09/23/2024 8:49 AM FOOD GENERAL MANAGER Legal Sex Female 11:30 PM FOOD GENERAL MANAGER Gender Identity Female 11/14/2024 10:46 AM FOOD GENERAL MANAGER Sexual Orientation Straight 11/14/2024 10 :46 AM FOOD GENERAL MANAGER documented as of this encounter Plan of Treatment Upcoming Encounters Date Type Department Care Team (Late st Contact Info) Description 10/05/2025 1:30 PM FOOD GENERAL MANAGER Appointment [facility] MRI [address] [place], [place] [address] Edison Torres MD 3 [place] [address] 10/05/2025 2:15 PM FOOD GENERAL MANAGER Appointment [facility] [address] [place] [address] Edison Torres MD 3 [place] [address] 10/07/2025 12:00 PM FOOD GENERAL MANAGER Appointment [facility] MRI [address] [place] [address] Edison Torres MD 3 [place] [address] 10/12/2025 9:45 AM FOOD GENERAL MANAGER Appointment [facility] MRI [address] [place] [address] Edison Torres MD 3 [place] [address] 10/12/2025 10:30 AM FOOD GENERAL MANAGER Appointment [facility] MRI [address] [place] [address] Edison Torres MD 3 [place] [address] 01/26/2026 11:00 AM CDT Office Visit [facility] Medical Group Multispecialty Care - [place] [address] [place] [address] Edison Torres MD 3 [place] [address] documented as of this encounter Visit Diagnoses Not on filedocumented in this encounter Additional Health Concerns Infection Onset Date Last Indicated Resolved Time Respiratory Rule Out 11/14/2024 11/14/2024 025 4:36 PM FOOD GENERAL MANAGER Influenza - Seasonal 11/14/2024 11/14/2024 025 12:32 AM CDT Assessment Noted Time PHQ-9 Depression Total Score: 5 05/09/20 24 12:10 PM CDT documented as of this encounter Care Teams Data Control Clerk Relationship Specialty Start Date End Date Lucy Luna MD [address] [facility] [address] [place] [address] PCP - General 05/08/24 documented as of this encounter
--- OUTSIDE RECORDS SUMMARY | 2025-09-06 18:57 | XMS_ITS | Encounter Summary ---
Author Organization [facility] Address [address] [place] [address] Care Team Providers Care Print Binding And Finishing Worker Name Role Phone Lucy Luna MD Primary Care Provider [phone] Encounter Details Date Type Department Care Team (Latest Contact Info) Description 08/19/2025 [facility] Message Enc [facility] Interventional [place] [id number] [facility] Provider Pain Management Referral Social History Tobacco Use Types Packs/Day Years [...] Sex Assigned at Female 09/23/2024 8:49 AM TITLE I PARAPROFESSIONAL Legal Sex Female 11:30 PM TITLE I PARAPROFESSIONAL Gender Identity Female 11/14/2024 10:46 AM TITLE I PARAPROFESSIONAL Sexual Orientation Straight 11/14/2024 10 :46 AM TITLE I PARAPROFESSIONAL documented as of this encounter Plan of Treatment Upcoming Encounters Date Type Department Care Team (Late st Contact Info) Description 10/05/2025 1:30 PM TITLE I PARAPROFESSIONAL Appointment [facility] Open MRI [address] [place], [place] [address] Edison Torres MD 3 [place], [place] [address] 10/05/2025 2:15 PM TITLE I PARAPROFESSIONAL Appointment [facility] [address] [place] [address] Edison Torres MD 3 [place] [address] 10/07/2025 12:00 PM TITLE I PARAPROFESSIONAL Appointment [facility] Open [facility] [address] [place] [address] Edison Torres MD 3 [place] [address] 10/12/2025 9:45 AM TITLE I PARAPROFESSIONAL [facility] [address] [place] [address] Edison Torres MD 3 [place] [address] 10/12/2025 10:30 AM TITLE I PARAPROFESSIONAL [facility]ment [facility] [address] [place] [address] Edison Torres MD 3 [place] [address] 01/26/2026 11:00 AM CDT Office Visit [facility] Multispecialty Care - [place]'s [address] [address] Edison Torres MD 3 [place] [address] documented as of this encounter Visit Diagnoses Not on filedocumented in this encounter Additional Health Concerns Assessment Noted Time PHQ-9 Depression Total Score: 3 06/05/20 25 2:04 PM CDT documented as of this encounter Care Teams Print Binding And Finishing Worker Relationship Specialty Start Date End Date Lucy Luna MD [address] [address] PCP - General 05/08/24 documented as of this encounter
--- OUTSIDE RECORDS SUMMARY | 2025-09-06 18:57 | XMS_ITS | Encounter Summary ---
Author Organization [facility] Address [address] [place] [address] Care Team Providers Care Data Sme Name Role Phone Lucy Luna MD Primary Care Provider [phone] Encounter Details Date Type Department Care Team (Latest Contact Info) Description 11/07/2024 Everist Healtht Message Enc [facility] Medical Group Multispecialty Care - [place] [address] [address] [place], [place] [phone] [place] [address] [place] [address] 157 [place] [address] Root canal w/abcess Social History Tobacco Use [...] Sex Assigned at Female 09/23/2024 8:49 AM WORD PROCESSOR OPERATOR Legal Sex Female 11:30 PM WORD PROCESSOR OPERATOR Gender Identity Female 11/14/2024 10:46 AM WORD PROCESSOR OPERATOR Sexual Orientation Straight 11/14/2024 10 :46 AM WORD PROCESSOR OPERATOR documented as of this encounter Plan of Treatment Upcoming Encounters Date Type Department Care Team (Late st Contact Info) Description 10/05/2025 1:30 PM WORD PROCESSOR OPERATOR [facility] [address] [place] [address] Edison Torres MD 3 [facility] [place] [address] 10/05/2025 2:15 PM WORD PROCESSOR OPERATOR Appointment [facility] Open MRI [address] [place] [address] Edison Torres MD 3 [place] [address] 10/07/2025 12:00 PM WORD PROCESSOR OPERATOR Appointment [facility] MRI [address] [place] [address] Edison Torres MD 3 [place] [address] 10/12/2025 9:45 AM WORD PROCESSOR OPERATOR Appointment [facility] MRI [address] [place] [address] Edison Torres MD 3 [place] [address] 10/12/2025 10:30 AM WORD PROCESSOR OPERATOR Appointment [facility] MRI [address] [place] [address] Edison Torres MD 3 [place] [address] 01/26/2026 11:00 AM CDT Office Visit [facility] Medical Group Multispecialty Care - [place] [address] [place] [address] Edison Torres MD 3 [place] [address] documented as of this encounter Visit Diagnoses Not on filedocumented in this encounter Additional Health Concerns Infection Onset Date Last Indicated Resolved Time Respiratory Rule Out 11/14/2024 11/14/2024 025 4:36 PM WORD PROCESSOR OPERATOR Influenza - Seasonal 11/14/2024 11/14/2024 025 12:32 AM CDT Assessment Noted Time PHQ-9 Depression Total Score: 0 11/07/19 25 10:46 AM WORD PROCESSOR OPERATOR documented as of this encounter Care Teams Data Sme Relationship Specialty Start Date End Date Lucy Luna MD [address] [facility] [address] [place] [address] PCP - General 05/08/24 documented as of this encounter
--- OUTSIDE RECORDS SUMMARY | 2025-09-06 18:57 | XMS_ITS | Encounter Summary ---
Author Organization [facility] Address [address] [place] [address] Care Team Providers Care Lithostripper Name Role Phone Lucy Luna MD Primary Care Provider [phone] Encounter Details Date Type Department Care Team (Latest Contact Info) Description 02/09/2025 Cellum Grouphart Message Enc [facility] Medical Group Multispecialty Care - [place] [address] [facility] [address] [place], [place] [id number] Piedad Mcfarland, STILE RIPSAW OPERATOR [address] [place] [address] [employer] Insurance Social History Tobacco Use Types Packs/Day Years Used Date Smoking Tobacco: Never Passive Smoke Exposure: Never Smokeless Tobacco: Never Comments:Counseled by Dr. Raquel león. Alcohol Use Standard Drinks/Week Comments Not Currently 0 (1 standard drink = 0.6 oz pur e alcohol) PHQ-2 Answer Date Recorded Patient Health Questionnaire-2 Score 3 01/13/2025 Comments No Sex and Gender Information Value Date Recorded Sex Assigned at Female 09/23/2024 8:49 AM HAND TUBE BENDER Legal Sex Female 11:30 PM HAND TUBE BENDER Gender Identity Female 11/14/2024 10:46 AM HAND TUBE BENDER Sexual Orientation Straight 11/14/2024 10 :46 AM HAND TUBE BENDER documented as of this encounter Plan of Treatment Upcoming Encounters Date Type Department Care Team (Late st Contact Info) Description 10/05/2025 1:30 PM HAND TUBE BENDER Appointment [facility] [address] [place] [address] Edison Torres MD 3 [facility] [place] [address] 10/05/2025 2:15 PM HAND TUBE BENDER Appointment [facility] [address] [place] [address] Edison Torres MD 3 [place] [address] 10/07/2025 12:00 PM HAND TUBE BENDER Appointment [facility] [address] [place] [address] Edison Torres MD 3 [place] [address] 10/12/2025 9:45 AM HAND TUBE BENDER Appointment [facility] [address] [place] [address] Edison Torres MD 3 [place] [address] 10/12/2025 10:30 AM HAND TUBE BENDER Appointment [facility] [address] [place] [address] Edison Torres MD 3 [place] [address] 01/26/2026 11:00 AM CDT Office Visit [facility] Medical Group Multispecialty Care - [place] [address] [place] [address] Edison Torres MD 3 [place] [address] documented as of this encounter Visit Diagnoses Not on filedocumented in this encounter Additional Health Concerns Assessment Noted Time PHQ-9 Depression Total Score: 9 01/14/20 25 1:15 PM CDT documented as of this encounter Care Teams Lithostripper Relationship Specialty Start Date End Date Lucy Luna MD [facility] [address] [place] [address] PCP - General 05/08/24 documented as of this encounter
--- OUTSIDE RECORDS SUMMARY | 2025-09-06 18:57 | XMS_ITS | Encounter Summary ---
Author Organization [facility] Address [address] [place] [address] Care Team Providers Care Pipe Organ Mechanic Apprentice Name Role Phone Lucy Luna MD Primary Care Provider [phone] Encounter Details Date Type Department Care Team (Late Contact Info) Description 04/06/[address] [facility] Multispecialty Care - [place] [address] [place] [address] [address] [place], [place] [id number] [place] [address] [place] [address] 157 [place] [address] Wegovy dose up Social History Tobacco Use Types Packs/Day Years Used Date Smoking Tobacco: Never Passive Smoke Exposure: Never Smokeless Tobacco: Never Comments:Counseled by Dr. Raquel león. Alcohol Use Standard Drinks/Week Comments Not Currently 0 (1 standard drink = 0.6 oz pur e alcohol) PHQ-2 Answer Date Recorded Patient Health Questionnaire-2 Score 2 03/10/2025 Comments No Sex and Gender Information Value Date Recorded Sex Assigned at Female 09/23/2024 8:49 AM PROFESSIONAL BENEFITS SALES CONSULTANT Legal Sex Female 11:30 PM PROFESSIONAL BENEFITS SALES CONSULTANT Gender Identity Female 11/14/2024 10:46 AM PROFESSIONAL BENEFITS SALES CONSULTANT Sexual Orientation Straight 11/14/2024 10 :46 AM PROFESSIONAL BENEFITS SALES CONSULTANT documented as of this encounter Plan of Treatment Upcoming Encounters Date Type Department Care Team (Late st Contact Info) Description 10/05/2025 1:30 PM PROFESSIONAL BENEFITS SALES CONSULTANT [facility] [address] [place] [address] Edison Torres MD 3 [facility] [place] [address] 10/05/2025 2:15 PM PROFESSIONAL BENEFITS SALES CONSULTANT [facility]oint[facility] [address] [place] [address] Edison Torres MD 3 [place] [address] 10/07/2025 12:00 PM PROFESSIONAL BENEFITS SALES CONSULTANT [facility] [address] [place] [address] Edison Torres MD 3 [place] [address] 10/12/2025 9:45 AM PROFESSIONAL BENEFITS SALES CONSULTANT [facility] [address] [place] [address] Edison Torres MD 3 [place] [address] 10/12/2025 10:30 AM PROFESSIONAL BENEFITS SALES CONSULTANT [facility] [address] [place] [address] Edison Torres MD 3 [place] [address] 01/26/2026 11:00 AM CDT Office Visit [facility] Medical Group Multispecialty Care - [place] [address] [place] [address] Edison Torres MD 3 [place] [address] documented as of this encounter Visit Diagnoses Not on filedocumented in this encounter Additional Health Concerns Assessment Noted Time PHQ-9 Depression Total Score: 5 03/10/20 25 1:43 PM CDT documented as of this encounter Care Teams Pipe Organ Mechanic Apprentice Relationship Specialty Start Date End Date Lucy Luna MD [facility] [address] [place] [address] PCP - General 05/08/24 documented as of this encounter
--- OUTSIDE RECORDS SUMMARY | 2025-09-06 18:57 | XMS_ITS | Encounter Summary ---
Author Organization [facility] Address [address] [place] [address] Care Team Providers Care Seam Stayer Name Role Phone Lucy Luna MD Primary Care Provider [phone] Encounter Details Date Type Department Care Team (Latest Contact Info) Description 11/24/2024 Spongecellhart Message Enc [facility] Medical Group Multispecialty Care - [place] [address] [address] [place], [place] [address] [place] [address] [place] [address] 157 [place], [place] [id number] Abnormal Mammogram Social History Tobacco Use Types [...] Sex Assigned at Female 09/23/2024 8:49 AM AQUATIC PHYSIOTHERAPIST Legal Sex Female 11:30 PM AQUATIC PHYSIOTHERAPIST Gender Identity Female 11/14/2024 10:46 AM AQUATIC PHYSIOTHERAPIST Sexual Orientation Straight 11/14/2024 10 :46 AM AQUATIC PHYSIOTHERAPIST documented as of this encounter Plan of Treatment Upcoming Encounters Date Type Department Care Team (Late st Contact Info) Description 10/05/2025 1:30 PM AQUATIC PHYSIOTHERAPIST [facility]ment [facility] [address] [place] [address] Edison Torres MD 3 [place] [address] 10/05/2025 2:15 PM AQUATIC PHYSIOTHERAPIST Appointment [facility] [address] [place] [address] Edison Torres MD 3 [place] [address] 10/07/2025 12:00 PM AQUATIC PHYSIOTHERAPIST Appointment [facility] [address] [place] [address] Edison Torres MD 3 [place] [address] 10/12/2025 9:45 AM AQUATIC PHYSIOTHERAPIST Appointment [facility] [address] [place] [address] Edison Torres MD 3 [place] [address] 10/12/2025 10:30 AM AQUATIC PHYSIOTHERAPIST Appointment [facility] [address] [place] [address] Edison Torres MD 3 [place] [address] 01/26/2026 11:00 AM CDT Office Visit [facility] Medical Group Multispecialty Care - [place] [address] [place] [address] Edison Torres MD 3 [place] [address] documented as of this encounter Visit Diagnoses Not on filedocumented in this encounter Additional Health Concerns Infection Onset Date Last Indicated Resolved Time Influenza - Seasonal 11/14/2024 11/14/2024 025 12:32 AM CDT Assessment Noted Time PHQ-9 Depression Total Score: 0 11/07/19 25 10:46 AM AQUATIC PHYSIOTHERAPIST documented as of this encounter Care Teams Seam Stayer Relationship Specialty Start Date End Date Luyc Luna MD [address] [facility] [address] [place] [address] PCP - General 05/08/24 documented as of this encounter
--- OUTSIDE RECORDS SUMMARY | 2025-09-06 18:57 | XMS_ITS | Encounter Summary ---
Author Organization [facility] Address [address] [place] [address] Care Team Providers Care Clinical Nursing Director Name Role Phone Lucy Luna MD Primary Care Provider [phone] Encounter Details Date Type Department Care Team (Late st Contact Info) Description 03/19/2025 MyChart Message Enc [facility] Medical Group Multispecialty Care - [place] [address] [address] [place] [address] Lucy Luna MD [address] [place] [address] 157 [place] [address] Wegovy Social History Tobacco Use Types Packs/Day Years [...] Assigned at Female 09/23/2024 8:49 AM FOOD PROCESSING CHEMIST Legal Sex Female 11:30 PM FOOD PROCESSING CHEMIST Gender Identity Female 11/14/2024 10:46 AM FOOD PROCESSING CHEMIST Sexual Orientation Straight 11/14/2024 10 :46 AM FOOD PROCESSING CHEMIST documented as of this encounter Plan of Treatment Upcoming Encounters Date Type Department Care Team (Late st Contact Info) Description 10/05/2025 1:30 PM FOOD PROCESSING CHEMIST Appointment [facility] [address] [place] [address] Edison Torres MD 3 [place] [address] 10/05/2025 2:15 PM FOOD PROCESSING CHEMIST Appointment [facility] [address] [place] [address] Edison Torres MD 3 [place] [address] 10/07/2025 12:00 PM FOOD PROCESSING CHEMIST Appointment [facility] [address] [place] [address] Edison Torres MD 3 [place] [address] 10/12/2025 9:45 AM FOOD PROCESSING CHEMIST Appointment [facility] [address] [place] [address] Edison Torres MD 3 [place] [address] 10/12/2025 10:30 AM FOOD PROCESSING CHEMIST Appointment [facility] [address] [place] [address] Edison Torres MD 3 [place] [address] 01/26/2026 11:00 AM CDT Office Visit [facility] Medical Group Multispecialty Care - [place] [address] [place] [address] Edison Torres MD 3 [place] [address] documented as of this encounter Visit Diagnoses Not on filedocumented in this encounter Additional Health Concerns Assessment Noted Time PHQ-9 Depression Total Score: 5 03/10/20 25 1:43 PM CDT documented as of this encounter Care Teams Clinical Nursing Director Relationship Specialty Start Date End Date Lucy Luna MD [address] [facility] [address] [place] [address] PCP - General 05/08/24 documented as of this encounter
--- OUTSIDE RECORDS SUMMARY | 2025-09-06 18:57 | XMS_ITS | Encounter Summary ---
Author Organization [facility] Address [address] [place] [address] Care Team Providers Care Lamination Machine Operator Name Role Phone Lucy Luna MD Primary Care Provider [phone] Encounter Details Date Type Department Care Team (Late st Contact Info) Description 03/10/2025 MyChart Message Enc [facility] Medical Group Multispecialty Care - [place] [address] [address] [place] [address] [place] [address] [place] [address] 157 [place] [address] Prescriptions Social History Tobacco Use Types Packs/Day Years [...] Sex Assigned at Female 09/23/2024 8:49 AM ELECTRIC REPAIR SUPERVISOR Legal Sex Female 11:30 PM ELECTRIC REPAIR SUPERVISOR Gender Identity Female 11/14/2024 10:46 AM ELECTRIC REPAIR SUPERVISOR Sexual Orientation Straight 11/14/2024 10 :46 AM ELECTRIC REPAIR SUPERVISOR documented as of this encounter Plan of Treatment Upcoming Encounters Date Type Department Care Team (Late st Contact Info) Description 10/05/2025 1:30 PM ELECTRIC REPAIR SUPERVISOR [facility]ment [facility] [address] [place] [address] Edison Torres MD 3 [facility] [place] [address] 10/05/2025 2:15 PM ELECTRIC REPAIR SUPERVISOR Appointment [facility] [address] [place] [address] Edison Torres MD 3 [place] [address] 10/07/2025 12:00 PM ELECTRIC REPAIR SUPERVISOR Appointment [facility] [address] [place] [address] Edison Torres MD 3 [place] [address] 10/12/2025 9:45 AM ELECTRIC REPAIR SUPERVISOR Appointment [facility] [address] [place] [address] Edison Torres MD 3 [place] [address] 10/12/2025 10:30 AM ELECTRIC REPAIR SUPERVISOR Appointment [facility] [address] [place] [address] Edison Torres MD 3 [place] [address] 01/26/2026 11:00 AM CDT Office Visit [facility] Medical Group Multispecialty Care - [place] [address] [place] [address] Edison Torres MD 3 [place] [address] documented as of this encounter Visit Diagnoses Not on filedocumented in this encounter Additional Health Concerns Assessment Noted Time PHQ-9 Depression Total Score: 5 03/10/20 25 1:43 PM CDT documented as of this encounter Care Teams Lamination Machine Operator Relationship Specialty Start Date End Date Lucy Luna MD [address] [address] PCP - General 05/08/24 documented as of this encounter
--- OUTSIDE RECORDS SUMMARY | 2025-09-06 18:57 | XMS_ITS | Clinical Summary ---
Author Organization [facility] Address [address] [place] [address] Care Team Providers Care Director Of Therapy Services Name Role Phone Dominique Avila MD Primary [...] on file Legal Sex Female 3:22 AM BABYSITTER Gender Identity Not on file Sexual Orientation [...] Additional history exists Human Papillomavirus (HPV) Immunization (No Doses Required) Completed Meningococcal Immunization (ACWY) Aged Out No longer eligible based on patient's age to complete this topic Rotavirus Immunization Aged Out No lo nger eligible based on patient's age to complete this topic Insurance [facility] Care Teams Director Of Therapy Services Relationship Specialty Start Date End Date Dominique Avila MD [address] [place] [address] PCP - General Internal Medicine 09/11/19
--- OUTSIDE RECORDS SUMMARY | 2025-09-06 18:57 | XMS_ITS | Encounter Summary ---
Author Organization [facility] Address [address] [place] [address] Care Team Providers Care Cutter Grind Tool Technician Name Role Phone Lucy Luna MD Primary Care Provider [phone] Encounter Details Date Type Department Care Team (Latest Contact Info) Description 07/21/2025 CarHoundhart Message Enc [facility] Medical Group Multispecialty Care - [place] [address] [address] [place], [place] [phone] [place] [address] [place] [address] [address] [place], [place] [address] Referral to Yasmine Ferris [facility] Social History Tobacco Use Types Packs/Day Years [...] Sex Assigned at Female 09/23/2024 8:49 AM MONOGRAM MACHINE OPERATOR Legal Sex Female 11:30 PM MONOGRAM MACHINE OPERATOR Gender Identity Female 11/14/2024 10:46 AM MONOGRAM MACHINE OPERATOR Sexual Orientation Straight 11/14/2024 10 :46 AM MONOGRAM MACHINE OPERATOR documented as of this encounter Plan of Treatment Upcoming Encounters Date Type Department Care Team (Late st Contact Info) Description 10/05/2025 1:30 PM MONOGRAM MACHINE OPERATOR Appointment [facility] MRI [address] [place] [address] Edison Torres MD 3 [facility] [place] [address] 10/05/2025 2:15 PM MONOGRAM MACHINE OPERATOR Appointment [facility] [address] [place] [address] Edison Torres MD 3 [place] [address] 10/07/2025 12:00 PM MONOGRAM MACHINE OPERATOR Appointment [facility] [address] [place] [address] Eidson Torres MD 3 [place] [address] 10/12/2025 9:45 AM MONOGRAM MACHINE OPERATOR Appointment [facility] [address] [place] [address] Edison Torres MD 3 [place] [address] 10/12/2025 10:30 AM MONOGRAM MACHINE OPERATOR Appointment [facility] [address] [place] [address] Edison Torres MD 3 [place] [address] 01/26/2026 11:00 AM CDT Office Visit [facility] Medical Group Multispecialty Care - [place] [address] [place] [address] Edison Torres MD 3 [place] [address] documented as of this encounter Visit Diagnoses Not on filedocumented in this encounter Additional Health Concerns Assessment Noted Time PHQ-9 Depression Total Score: 3 06/05/20 25 2:04 PM CDT documented as of this encounter Care Teams Cutter Grind Tool Technician Relationship Specialty Start Date End Date Lucy Luna MD [address] [address] PCP - General 05/08/24 documented as of this encounter
--- OUTSIDE RECORDS SUMMARY | 2025-09-06 18:57 | XMS_ITS | Encounter Summary ---
Author Organization [facility] Address [address] [place] [address] Care Team Providers Care Project Portfolio Analyst Name Role Phone Lucy Luna MD Primary Care Provider [phone] Encounter Details Date Type Department Care Team (Late st Contact Info) Description 01/19/2025 MyChart Message Enc [facility] Medical Group Multispecialty Care - [place] [address] [address] [place] [address] Lucy Luna MD [address] [place] [address] [address] [place] [address] GLP1 Social History Tobacco Use Types Packs/Day Years [...] Sex Assigned at Female 09/23/2024 8:49 AM CHIEF SERVICE OBSERVER Legal Sex Female 11:30 PM CHIEF SERVICE OBSERVER Gender Identity Female 11/14/2024 10:46 AM CHIEF SERVICE OBSERVER Sexual Orientation Straight 11/14/2024 10 :46 AM CHIEF SERVICE OBSERVER documented as of this encounter Plan of Treatment Upcoming Encounters Date Type Department Care Team (Late st Contact Info) Description 10/05/2025 1:30 PM CHIEF SERVICE OBSERVER Appointment [facility] MRI [address] [place] [address] Edison Torres MD 3 [place] [address] 10/05/2025 2:15 PM CHIEF SERVICE OBSERVER Appointment [facility] [address] [place] [address] Edison Torres MD 3 [place] [address] 10/07/2025 12:00 PM CHIEF SERVICE OBSERVER Appointment [facility] [address] [place] [address] Edison Torres MD 3 [place] [address] 10/12/2025 9:45 AM CHIEF SERVICE OBSERVER Appointment [facility] [address] [place] [address] Edison Torres MD 3 [place] [address] 10/12/2025 10:30 AM CHIEF SERVICE OBSERVER Appointment [facility] [address] [place] [address] Edison Torres MD 3 [place] [address] 01/26/2026 11:00 AM CDT Office Visit [facility] Medical Group Multispecialty Care - [place] [address] [place] [place] [facility] [address] Edison Torres MD 3 [place] [address] documented as of this encounter Visit Diagnoses Not on filedocumented in this encounter Additional Health Concerns Assessment Noted Time PHQ-9 Depression Total Score: 9 01/14/20 25 1:15 PM CDT documented as of this encounter Care Teams Project Portfolio Analyst Relationship Specialty Start Date End Date Lucy Luna MD [address] [address] PCP - General 05/08/24 documented as of this encounter
--- OUTSIDE RECORDS SUMMARY | 2025-09-06 18:57 | XMS_ITS | Encounter Summary ---
Author Organization [facility] Address [address] [place] [address] Care Team Providers Care Flare Stitcher Name Role Phone Lucy Luna MD Primary Care Provider [phone] Encounter Details Date Type Department Care Team (Late st Contact Info) Description 11/14/2024 MyChart Message Enc [facility] Medical Group Multispecialty Care - [place] [address] [address] [place] [address] [place] [address] [place] [address] [address] [place] [address] Flu Social History Tobacco Use Types Packs/Day [...] Sex Assigned at Female 09/23/2024 8:49 AM CARDIAC CATH LAB RADIOLOGY TECHNOLOGIST Legal Sex Female 11:30 PM CARDIAC CATH LAB RADIOLOGY TECHNOLOGIST Gender Identity Female 11/14/2024 10:46 AM CARDIAC CATH LAB RADIOLOGY TECHNOLOGIST Sexual Orientation Straight 11/14/2024 10 :46 AM CARDIAC CATH LAB RADIOLOGY TECHNOLOGIST documented as of this encounter Plan of Treatment Upcoming Encounters Date Type Department Care Team (Late st Contact Info) Description 10/05/2025 1:30 PM CARDIAC CATH LAB RADIOLOGY TECHNOLOGIST [facility]ment [facility] [address] [place] [address] Edison Torres MD 3 [facility] [place] [address] 10/05/2025 2:15 PM CARDIAC CATH LAB RADIOLOGY TECHNOLOGIST Appointment [facility] [address] [place] [address] Edison Torres MD 3 [place] [address] 10/07/2025 12:00 PM CARDIAC CATH LAB RADIOLOGY TECHNOLOGIST Appointment [facility] [address] [place] [address] Edison Torres MD 3 [place] [address] 10/12/2025 9:45 AM CARDIAC CATH LAB RADIOLOGY TECHNOLOGIST Appointment [facility] [address] [place] [address] Edison Torres MD 3 [place] [address] 10/12/2025 10:30 AM CARDIAC CATH LAB RADIOLOGY TECHNOLOGIST Appointment [facility] [address] [place] [address] Edison Torres MD 3 [place] [address] 01/26/2026 11:00 AM CDT Office Visit [facility] Medical Group Multispecialty Care - [place] [address] [place] [address] Edison Torres MD 3 [place] [address] documented as of this encounter Visit Diagnoses Not on filedocumented in this encounter Additional Health Concerns Infection Onset Date Last Indicated Resolved Time Respiratory Rule Out 11/14/2024 11/14/2024 025 4:36 PM CARDIAC CATH LAB RADIOLOGY TECHNOLOGIST Influenza - Seasonal 11/14/2024 11/14/2024 025 12:32 AM CDT Assessment Noted Time PHQ-9 Depression Total Score: 0 11/07/19 25 10:46 AM CARDIAC CATH LAB RADIOLOGY TECHNOLOGIST documented as of this encounter Care Teams Flare Stitcher Relationship Specialty Start Date End Date Lucy Luna MD [address] [facility] [address] [place] [address] PCP - General 05/08/24 documented as of this encounter
--- OUTSIDE RECORDS SUMMARY | 2025-09-06 18:57 | XMS_ITS | Encounter Summary ---
Author Organization [facility] Address [address] [place] [address] Care Team Providers Care Driver Name Role Phone Lucy Luna MD Primary Care Provider [phone] Encounter Details Date Type Department Care Team (Latest Contact Info) Description 07/04/2024 Utript Message Enc [facility] Multispecialty Care - [place] [address] [address] [place], [place] [id number] [place] [address] [place] [address] [address] [place] [address] Surgical reaction Social History Tobacco Use Types [...] Sex Assigned at Female 09/23/2024 8:49 AM LEATHER SHAVER Legal Sex Female 11:30 PM LEATHER SHAVER Gender Identity Female 11/14/2024 10:46 AM LEATHER SHAVER Sexual Orientation Straight 11/14/2024 10 :46 AM LEATHER SHAVER documented as of this encounter Plan of Treatment Upcoming Encounters Date Type Department Care Team (Late st Contact Info) Description 10/05/2025 1:30 PM LEATHER SHAVER Appointment [facility] [address] [place] [address] Edison Torres MD [address] [facility] [place] [address] 10/05/2025 2:15 PM LEATHER SHAVER Appointment [facility] [address] [place] [address] Edison Torres MD 3 [place] [address] 10/07/2025 12:00 PM LEATHER SHAVER Appointment [facility] [address] [place] [address] Edison Torres MD 3 [place] [address] 10/12/2025 9:45 AM LEATHER SHAVER Appointment [facility] [address] [place] [address] Edison Torres MD 3 [place] [address] 10/12/2025 10:30 AM LEATHER SHAVER Appointment [facility] [address] [place] [address] Edison Torres MD 3 [place] [address] 01/26/2026 11:00 AM CDT Office Visit [facility] - [facility] [address] [place] [address] Edison Torres MD [address] [place] [address] documented as of this encounter Visit Diagnoses Not on filedocumented in this encounter Additional Health Concerns Infection Onset Date Last Indicated Resolved Time Respiratory Rule Out 11/14/2024 11/14/2024 025 4:36 PM LEATHER SHAVER Influenza - Seasonal 11/14/2024 11/14/2024 025 12:32 AM CDT Assessment Noted Time PHQ-9 Depression Total Score: 5 05/09/20 24 12:10 PM CDT documented as of this encounter Care Teams Driver Relationship Specialty Start Date End Date Lucy Luna MD [address] [facility] [address] [place] [address] PCP - General 05/08/24 documented as of this encounter
--- OUTSIDE RECORDS SUMMARY | 2025-09-06 18:57 | XMS_ITS | Encounter Summary ---
Author Organization [facility] Address [address] [place] [address] Care Team Providers Care Retort Operator Name Role Phone Lucy Luna MD Primary Care Provider [phone] Encounter Details Date Type Department Care Team (Late st Contact Info) Description 12/03/2024 MyChart Message Enc [facility] Medical [facility] Multispecialty Care - [place] [address] [place] [address] Piedad Mcfarland, BINDER LAYER [address] [place] [address] DEXA Social History Tobacco Use Types Packs/Day [...] Sex Assigned at Female 09/23/2024 8:49 AM THERAPEUTIC STRATEGY LEAD Legal Sex Female 11:30 PM THERAPEUTIC STRATEGY LEAD Gender Identity Female 11/14/2024 10:46 AM THERAPEUTIC STRATEGY LEAD Sexual Orientation Straight 11/14/2024 10 :46 AM THERAPEUTIC STRATEGY LEAD documented as of this encounter Plan of Treatment Upcoming Encounters Date Type Department Care Team (Late st Contact Info) Description 10/05/2025 1:30 PM THERAPEUTIC STRATEGY LEAD Appointment [facility] [address] [place] [address] Edison Torres MD 3 [facility] [place] [address] 10/05/2025 2:15 PM THERAPEUTIC STRATEGY LEAD Appointment [facility] [address] [place] [address] Edison Torres MD 3 [place] [address] 10/07/2025 12:00 PM THERAPEUTIC STRATEGY LEAD Appointment [facility] [address] [place] [address] Edison Torres MD 3 [place] [address] 10/12/2025 9:45 AM THERAPEUTIC STRATEGY LEAD Appointment [facility] [address] [place] [address] Edison Torres MD 3 [place] [address] 10/12/2025 10:30 AM THERAPEUTIC STRATEGY LEAD Appointment [facility] [address] [place] [address] Edison Torres MD 3 [place] [address] 01/26/2026 11:00 AM CDT Office Visit [facility] Medical [facility] Multispecialty Care - [place] [address] [place] [address] Edison Torres MD 3 [place] [address] documented as of this encounter Visit Diagnoses Not on filedocumented in this encounter Additional Health Concerns Assessment Noted Time PHQ-9 Depression Total Score: 0 11/07/19 25 10:46 AM THERAPEUTIC STRATEGY LEAD documented as of this encounter Care Teams Retort Operator Relationship Specialty Start Date End Date Lucy Luna MD [address] [facility] [address] [place] [address] PCP - General 05/08/24 documented as of this encounter
[2025-09-06 19:50] VITALS: BP 159/86; PULSE 90; RESP 18; O2SAT 98
--- NOTE | 2025-09-06 21:16 | ED.ABDPAIN ---
HPI - Abdominal Pain General Chief Complaint: Abdominal Pain Stated Complaint: lower abdominal pain, fever Time Seen by Provider: 09/06/25 20:35 History of Present Illness HPI narrative: 60-year-old female with a past medical history including irritable bowel disease diarrheal type, diverticulosis, lap band procedure, intermittent left lower quadrant pain. Patient presents to the emergency department today with left lower quadrant pain. Patient states she recently started and completed a course of antibiotics for a sinus infection that is when her symptoms started. Denies any diarrhea. Has been trying some nhqx-zwa-ozzsfjj therapies at home without much relief. No diarrhea today. no nausea or vomiting but she does endorse some fever and subjective chills intermittently. She states she had a fever before she arrived to the emergency department but is afebrile currently. Denies any chest pain shortness a breath. No neuropathy or weakness. Was otherwise in her normal state of health. Had a previous colonoscopy this year without any acute findings or concerns per her report. No recent procedures or changes besides the recent antibiotic use. Related Data Home Medications ?Medication ?Instructions ?Recorded ?Confirmed ?Last Taken ?Type L.acidophilus-B.animalis-B.longum 1 cap PO DAILY 09/02/24 06/29/25 09/15/24 History 15 billion cell capsule (Florajen Digestion) Vitamin D2 1.25 mg BYMOUTH WEEKLY 09/02/24 06/29/25 09/17/24 History amlodipine 5 mg tablet 5 mg PO DAILY 09/02/24 06/29/25 09/22/24 History mecobalamin (vitamin B12) See Rx Instructions PO DAILY 09/02/24 06/29/25 09/22/24 History semaglutide (weight loss) 1 mg/0.5 1 mg subcut WEEKLY 06/29/25 06/29/25 Unknown History mL subcutaneous pen injector (Solum) Held on 07/23/25. Instructions: .Provider Order Allergies Allergy/AdvReac Type Severity Reaction Status Date / Time adhesive Allergy Severe Blister Verified 09/06/25 19:00 adhesive tape Allergy Severe Blister Verified 09/06/25 19:00 benzoin Allergy Severe Blister Verified 09/06/25 19:00 azithromycin Allergy Mild Hives Verified 09/06/25 19:00 celecoxib Allergy Mild Hives Verified 09/06/25 19:00 erythromycin base Allergy Mild Hives Verified 09/06/25 19:00 silver Allergy Mild Rash Verified 09/06/25 19:00 oral prednisone Allergy Severe Hypertensio Uncoded 07/23/25 10:03 n Review of Systems Review of Systems: As reviewed above in HPI All systems reviewed & are unremarkable except as noted in HPI and below PMFSH Past Medical History Medical History History of Clostridioides difficile infection Colon cancer screening Surgical History Surgical History History of hysterectomy History of sinus surgery History of carpal tunnel release History of ear surgery Social History Social History Smoking status: Former smoker Alcohol intake: current Alcohol use details: holidays Substance use: never Lack of Transportation: No Lack of Food: Never True Current Housing: I Have Housing Concerned About Future Housing: No Difficulty Paying Gas/Electric Bills: No Difficulty Paying for Meds: No Currently Unemployed: No Education: Master's Degree or Higher Difficulty w/ Childcare or Family Care: No Living arrangements: with family Spiritual care concerns: No Exam Narrative: GENERAL: [Well-appearing, well-nourished, and in no acute distress.] HEAD: [Normocephalic, atraumatic.] EYES: [PERRLA and EOMI.] ENT: Nares clear, no rhinorrhea or epistaxis. Mucous membranes moist. NECK: Supple. CHEST: [Clear to auscultation. No respiratory distress.] HEART: [Regular rate and rhythm]. No murmur heard. [Normal peripheral pulses.] ABDOMEN: soft and nondistended, tender to palpation left lower quadrant without any rigidity or guarding. No peritonitis. EXTREMITIES: Normal range of motion. [No edema.] SKIN: Warm, dry, no rash. NEURO: [No focal deficits]. Alert and oriented [x3.] PSYCH: [Normal mood and affect.] Course Vital Signs Vital signs: Vital Signs Temperature 37.4 C 09/06/25 18:57 Pulse Rate 98 09/06/25 18:57 Respiratory Rate 16 09/06/25 18:57 Pulse Oximetry 98 09/06/25 18:57 Oxygen Delivery Room Air 09/06/25 18:57 Temperature 37.4 C 09/06/25 18:57 Pulse Rate 98 09/07/25 01:51 Respiratory Rate 16 09/07/25 01:51 Blood Pressure 164/72 H 09/07/25 01:51 Pulse Oximetry 100 09/07/25 01:51 Oxygen Delivery Room Air 09/06/25 18:57 MDM MDM Narrative Medical decision making narrative: 60-year-old female with a past medical history including irritable bowel disease diarrheal type, diverticulosis, lap band procedure, intermittent left lower quadrant pain. Patient presents to the emergency department today with left lower quadrant pain. Patient states she recently started and completed a course of antibiotics for a sinus infection that is when her symptoms started. Denies any diarrhea. Has been trying some spki-uoy-fpyychl therapies at home without much relief. No diarrhea today. no nausea or vomiting but she does endorse some fever and subjective chills intermittently. She states she had a fever before she arrived to the emergency department but is afebrile currently. Denies any chest pain shortness a breath. No neuropathy or weakness. Was otherwise in her normal state of health. Had a previous colonoscopy this year without any acute findings or concerns per her report. No recent procedures or changes besides the recent antibiotic use. Patient overall is well appearing not any distress. She does have some reproducible left lower quadrant pain with palpation. patient is afebrile without any tachycardia. Mildly hypertensive. No hypoxemia. Potential gastroenteritis, diverticulitis, intra-abdominal infection, low suspicion intra-abdominal perforation or colitis with recent antibiotic use. No diarrhea. No urinary complaints but still could be a kidney stone or urinary tract infection. Laboratory studies were obtained, pain medications administered and CT scan ordered. CT scan shows uncomplicated diverticulitis. Laboratory studies are reassuring without any significant leukocytosis or anemia. Electrolytes are unremarkable. Normal kidney function. Normal LFTs. Urinalysis unremarkable. Discussed with her treatment options going forward of uncomplicated diverticulitis including watchful waiting without antibiotics versus antibiotic therapy. Patient does have risk factors and would like to go with antibiotics. Start her on Cipro and Flagyl with a 10 day course prescribed. We discussed return precautions and she was also given pain control medications. Given return precautions if she has any worsening symptoms intractable pain, developing new concerns or any other issues otherwise she should follow up with regular doctors and continue the antibiotic course. Differential Diagnosis Differential Diagnosis: Potential gastroenteritis, diverticulitis, intra-abdominal infection, low suspicion intra-abdominal perforation or colitis with recent antibiotic use. No diarrhea. No urinary complaints but still could be a kidney stone or urinary tract infection. Lab Data MDM Lab Attestation statement: I personally reviewed the patient's lab results. 09/06/25 21:32 09/06/25 21:32 Labs: Lab Results 09/06/25 09/06/25 Range/Units 20:11 21:32 WBC 11.0 H (4.5-10.0) K/mm3 RBC 4.66 (4.2-5.4) M/mm3 Hgb 13.1 (12.0-15.0) g/dL Hct 39.9 (37.0-47.0) % MCV 85.6 (80-100) fl MCH 28.1 (26-34) pg MCHC 32.8 (32-36) g/dl RDW 13.5 (11.5-14.5) % Plt Count 221 (150-375) k/mm3 MPV 9.0 (7.4-10.4) fl Immature Gran % (Auto) 0.5 (0-0.5) % Neut % (Auto) 68.0 (45.5-73.1) % Lymph % (Auto) 19.9 (18.3-44.2) % [place] % (Auto) 10.8 H (2.6-8.5) % Eos % (Auto) 0.5 (0-4.4) % Baso % (Auto) 0.3 (0.2-1.2) % Lymph # (Auto) 2.19 (0.9-3.2) K/mm3 [place] # (Auto) 1.2 H (0.1-0.6) K/mm3 Eos # (Auto) 0.1 (0-0.3) K/mm3 Baso # (Auto) 0.0 (0.0-0.1) K/mm3 Abs Immat Gran (auto) 0.06 H (0.00-0.031) K/mm3 Absolute Neuts (auto) 7.5 H (1.3-6.7) K/mm3 Absolute Nucleated RBC 0.000 (0.0-0.012) K/mm3 Nucleated RBC % 0.0 (0.0-0.2) % Sodium 136 L (137-145) mmol/L Potassium 3.8 (3.4-5.0) mmol/L Chloride 104 (98-107) mmol/L Carbon Dioxide 26 (22-30) mmol/L Anion Gap 6 (4-12) mmol/L BUN 7 D (7-17) mg/dL Creatinine 0.65 L (0.7-1.0) mg/dL Estim Creat Clear Calc 104 ml/min Estimated GFR > 60 (59 - ) Glucose 105 (65-110) mg/dL Calcium 8.7 (8.4-10.2) mg/dL Total Bilirubin 1.0 (0.2-1.3) mg/dL AST 27 (14-36) U/L ALT 24 (6-35) U/L Alkaline Phosphatase 82 (38-126) U/L Total Protein 8.1 (6.3-8.2) g/dL Albumin 4.2 (3.5-5.1) g/dL Lipase 97 (23-300) U/L Urine Color Yellow (Yellow) Urine Appearance Clear (Clear) Urine pH 8.0 (5.0-9.0) Ur Specific [place] 1.006 (1.001-1.035) Urine Protein Negative (Negative) mg/dL Urine Glucose (UA) Negative (Negative) mg/dL Urine Ketones Negative (Negative) mg/dL Ur Blood (Man) Negative (Negative) Urine Nitrate Negative (Negative) Urine Bilirubin Negative (Negative) Urine Urobilinogen 1.0 (<2.0) mg/dL Leukocyte Esterase Rfl Negative (Negative) ROSE/UL Imaging Data Attestation: I personally reviewed and interpreted this imaging study as follows: My impression: Uncomplicated diverticulitis. Discharge Plan Discharge Clinical Impression: Diverticulitis Patient Disposition: Home Condition: Stable Instructions: Antibiotic Form, Diverticulitis (DC) Additional Instructions: CT scan shows mild acute uncomplicated diverticulitis in the left lower quadrant consistent with your symptoms and exam. We will treat this with a course of antibiotics given your risk factors. Take antibiotics as prescribed as well as the pain medications as needed. Follow-up with your regular primary care provider. Return with any emergent concerns such as worsening intractable pain, intractable nausea vomiting, bloody diarrhea, spiking high fevers or any other emergencies. Patient Language: Setswana Prescriptions: New hydrocodone-acetaminophen 5-325 mg tablet 1 tablet PO Q8H PRN (Reason: pain) Qty: 14 0RF metronidazole 500 mg tablet 500 mg PO Q12H 10 Days Qty: 20 0RF ciprofloxacin HCl [Cipro] 500 mg tablet 500 mg PO Q12H 10 Days Qty: 20 0RF No Action Wegovy 1 mg/0.5 mL pen injector 1 mg subcut WEEKLY Rx Instructions: administer weeks 9 through 12 of therapy amlodipine 5 mg tablet 5 mg PO DAILY mecobalamin (vitamin B12) See Rx Instructions PO DAILY Rx Instructions: 1 tab orally daily; Vitamin D2 1.25 mg tablet 1.25 mg BYMOUTH WEEKLY Florajen Digestion 15 billion cell capsule 1 cap PO DAILY colestipol 1 gram tablet 1 g PO BID Qty: 60 3RF Follow-up/Referrals: Cheryl,MD Lucy [Primary Care Provider, Unknown] Time of Disposition: 00:32
[2025-09-06 21:37] LABS: Add Urine Microscopic? NO; Appearance Urine Clear (Clear); Glucose Urine UA Negative (Negative); Leukocyte Esterase Ur Negative LEU/UL (Negative); Nitrate Urine Negative (Negative); Specific Grav Ur 1.006 (1.001-1.035)
[2025-09-06] MEDS: HYDROmorphone HCL INJ (*CRX) 1 MG/ML SYR IV PUSH (21:38)
[2025-09-06 21:51] LABS: Hematocrit 39.9 % (37.0-47.0); Hemoglobin 13.1 g/dL (12.0-15.0); Immature Granulocyte Percent A 0.5 % (0-0.5); Lymphocytes Absolute Auto 2.19 K/mm3 (0.9-3.2); Mean Corpuscular HGB Conc 32.8 g/dl (32-36); Mean Corpuscular Hemoglobin 28.1 pg (26-34); Mean Corpuscular Volume 85.6 fl (80-100); Nucleated Red Blood Cells Absolute Auto 0.000 K/mm3 (0.0-0.012); Nucleated Red Blood Cells Perc 0.0 % (0.0-0.2); Platelet Count Result 221 k/mm3 (150-375); Red Blood Count 4.66 M/mm3 (4.2-5.4); White Blood Count 11.0 K/mm3 (4.5-10.0)
[2025-09-06 22:05] LABS: Alanine Aminotransferase 24 U/L (6-35); Albumin Level 4.2 g/dL (3.5-5.1); Alkaline Phosphatase 82 U/L (38-126); Anion Gap 6 mmol/L (4-12); Aspartate Amino Transferase 27 U/L (14-36); Bilirubin,Total 1.0 mg/dL (0.2-1.3); Blood Urea Nitrogen 7 mg/dL (7-17); Calcium 8.7 mg/dL (8.4-10.2); Carbon Dioxide 26 mmol/L (22-30); Chloride 104 mmol/L (98-107); Estimated CRCL calculation 104 ml/min; Estimated Glomerular Filt Rate > 60; Glucose 105 mg/dL (65-110); Lipase 97 U/L (23-300); Potassium 3.8 mmol/L (3.4-5.0); Sodium 136 mmol/L (137-145); Total Protein 8.1 g/dL (6.3-8.2)
[2025-09-07] MEDS: CIPROFLOXACIN 500 MG TAB PO (00:39)
[2025-09-07 01:51] VITALS: BP 164/72; PULSE 98; RESP 16; O2SAT 100
== END 2025-09-07 02:13 | disposition home or self-care (01) ==
PROVIDERS: Emergency Provider Student in an Organized Health Care Education/Training Program; PCP Internal Medicine
DX: K57.32 Diverticulitis of large intestine without perforation or abscess without bleeding (principal); K58.0 Irritable bowel syndrome with diarrhea; Z98.84 Bariatric surgery status; Z87.891 Personal history of nicotine dependence; Z90.710 Acquired absence of both cervix and uterus
CPT/HCPCS: 36415; 74177; 80053; 81003; 83690; 85025; 96361; 96374; 99284; A9270; J1171; Q9967